=== PATIENT | female | born 1965 | race Caucasian/White ===

== ENCOUNTER 2017-09-23 22:43 | Emergency (ER) | payer BC ==
[2017-09-23 22:53] VITALS: BMI 19.5
--- NOTE | 2017-09-23 23:49 | PDOC ---
History of Present Illness - General History Source: Patient Exam Limitations: No Limitations - History of Present Illness Initial Comments: 09/24/17 00:51 Patient is a 52 year old female with a significant past medical history of hypothyroidism, who presents to the ED with complaints of acute onset abdominal pain that began 3 hours prior to ED arrival. Patient reports experience sudden onset of diffuse abdominal pain while at home that has shown no signs of subsiding prompting her to come into the ED for further evaluation. She reports her last bowel movement was earlier today stating it was not soft, and was quickly followed by intermittent episodes of cold sweats. Patient reports she has experienced episodes of gas issues but is unsure if this feels similar to those episodes. Denies chest pain, Sob. Denies nausea, vomiting. Denies contact with sick individuals, out of state travelling. Denies any other symptoms. Allergies: None Social History: No smoking. No alcohol. No illicit drugs, Surgical History: None PMD: Dr. Collins <Silvestre Grimaldo - Last Filed: 09/24/17 00:51> - General History Source: Patient <Tito Abrams - Last Filed: 09/24/17 06:19> - General Chief Complaint: Nausea/Vomiting Stated Complaint: NAUSEA/VOMITING Time Seen by Provider: 09/23/17 23:44 Past History <Silvestre Grimaldo - Last Filed: 09/24/17 00:51> - Past Medical History COPD: No Thyroid Disease: Yes (hypothyroidism) - Immunization History Td Vaccination: Yes TDAP Vaccination: Yes Immunization Up to Date: Yes - Suicide/Smoking/Psychosocial Hx Smoking Status: No Smoking History: Never smoked Number of Cigarettes Smoked Daily: 0 <Tito Abrams - Last Filed: 09/24/17 06:19> - Past Medical History Allergies/Adverse Reactions: Allergies Allergy/AdvReac Type Severity Reaction Status Date / Time Sulfa (Sulfonamide Allergy Verified 09/23/17 22:50 Antibiotics) Home Medications: Ambulatory Orders Levothyroxine [Synthroid] 50 mcg PO DAILY 05/25/12 Ondansetron [Zofran *Odt*] 4 mg SL TID #30 od.tablet 09/24/17 Review of Systems - Review of Systems Able to Perform ROS?: Yes Comments:: 09/24/17 00:51 CONSTITUTIONAL: Absent: fever, no chills, no fatigue EYES: Absent: visual changes ENT: Absent: ear pain, no sore throat CARDIOVASCULAR: Absent: chest pain, no palpitations RESPIRATORY: Absent: cough, no SOB GI: +Abdominal pain. Absent: No nausea, no vomiting, no constipation, no diarrhea GENITOURINARY: Absent: dysuria, no frequency, no hematuria MUSCULOSKELETAL: Absent: back pain, no arthralgia, no myalgia SKIN: Absent: rash <Silvestre Grimaldo - Last Filed: 09/24/17 00:51> *Physical Exam - Vital Signs Last Vital Signs Temp Pulse Resp BP Pulse Ox 57 L 18 124/85 100 09/23/17 22:50 09/23/17 22:50 09/23/17 22:50 09/23/17 22:50 - Physical Exam Comments: 09/24/17 00:52 GENERAL: +Mild distress. Well-appearing, well-nourished. No apparent distress. HEENT: Normocephalic, atraumatic. PERRL, EOM intact. CARDIOVASCULAR: Normal S1, S2. Regular rate and rhythm. PULMONARY: Clear to auscultation bilaterally. ABDOMEN: +Diffusely tender Soft, non-distended, EXTREMITIES: Normal ROM in all four extremities. No gross deformities. SKIN: Warm, dry. No rash NEUROLOGICAL: No focal neurological deficits. <Silvestre Grimaldo - Last Filed: 09/24/17 00:51> - Vital Signs Last Vital Signs Temp Pulse Resp BP Pulse Ox 57 L 18 124/85 100 09/23/17 22:50 09/23/17 22:50 09/23/17 22:50 09/23/17 22:50 <Tito Abrams - Last Filed: 09/24/17 06:19> ED Treatment Course - LABORATORY CBC & Chemistry Diagram: 09/24/17 03:50 09/24/17 03:50 <Tito Abrams - Last Filed: 09/24/17 06:19> Medical Decision Making - Medical Decision Making 09/24/17 06:19 Dr. Abrams: The scribe's documentation has been prepared under my direction and personally reviewed by me in its entirery. I confirm that the note above accurately reflects all work, treatment, procedures, and medical decision making performed by me. <Tito Abrams - Last Filed: 09/24/17 06:19> *DC/Admit/Observation/Transfer - Attestations Scribe Attestion: 09/24/17 00:52 Documentation prepared by Silvestre rGimaldo, acting as anesthesiology medical doctor for Tito Abrams MD/DO. <Silvestre Grimaldo - Last Filed: 09/24/17 00:51> - Discharge Dispostion Admit: No <Tito Abrams - Last Filed: 09/24/17 06:19> Diagnosis at time of Disposition: Dehydration Nausea & vomiting Qualifiers: Vomiting type: unspecified Vomiting Intractability: non-intractable Qualified Code(s): R11.2 - Nausea with vomiting, unspecified - Discharge Dispostion Disposition: HOME Condition at time of disposition: Improved - Referrals Referrals: Aminta Huertas MD [Primary Care Provider] - - Patient Instructions Printed Discharge Instructions: DI for Nausea -- Adult, DI for Vomiting -- Adult, DI for Dehydration -- Adult Additional Instructions: Drink plenty of fluids. take medications as directed. Return if any problems - Post Discharge Activity
[2017-09-23] MEDS ORDERED: KETOROLAC TROMETHAMINE 30 MG/1 ML VIAL IVPUSH ONE (23:51)
[2017-09-23] MEDS ORDERED: ONDANSETRON 4 MG/2 ML VIAL IVPUSH STA (23:51)
[2017-09-23] MEDS ORDERED: SODIUM CHLORIDE 1,000 ML IV STA (23:51)
[2017-09-24] MEDS ORDERED: ONDANSETRON 4 MG/2 ML VIAL ONE (03:25)
[2017-09-24] MEDS ORDERED: KETOROLAC TROMETHAMINE 30 MG/1 ML VIAL ONE (03:25)
[2017-09-24 04:05] LABS: URINE APPEARANCE CLEAR; URINE BILIRUBIN NEGATIVE (<2.0 mg/dL); URINE BLOOD 3+ (NEGATIVE); URINE COLOR LTYELLOW; URINE GLUCOSE (UA) NEGATIVE (NEGATIVE); URINE KETONE 1+ (NEGATIVE); URINE LEUK ESTERASE NEGATIVE (NEGATIVE); URINE NITRITE NEGATIVE (NEGATIVE); URINE PROTEIN NEGATIVE (NEGATIVE); URINE UROBILINOGEN NEGATIVE mg/dL (0.2-1.0)
[2017-09-24 04:13] LABS: EPI CELLS RARE /HPF (FEW); URINE MUCUS RARE
[2017-09-24 04:15] LABS: PROTHROMBIN TIME (PATIENT) 11.3 SEC (9.98-11.88)
[2017-09-24 04:18] LABS: BASO % 0.2 % (0-2.0); HEMATOCRIT 44.5 % (32.4-45.2); HEMOGLOBIN 14.8 GM/dL (10.7-15.3); LYMPH % 7.8 % (8-40); MCH 30.9 pg (25.7-33.7); MCHC 33.4 g/dl (32.0-36.0); MEAN CELL VOLUME 92.5 fl (80-96); MEAN PLT VOLUME 9.8 fl (7.5-11.1); MONO % 2.7 % (3.8-10.2); NEUT % 89.3 % (42.8-82.8); PLATELET COUNT 222 K/MM3 (134-434); RBC 4.81 M/mm3 (3.60-5.2); RDW 12.5 % (11.6-15.6); WHITE BLOOD COUNT 13.4 K/mm3 (4.0-10.0)
[2017-09-24 04:28] LABS: ALBUMIN 4.9 g/dl (3.4-5.0); ANION GAP 12 (8-16); BILIRUBIN,TOTAL 0.5 mg/dL (0.2-1.0); BLOOD UREA NITROGEN 22 mg/dL (7-18); CALCIUM 9.9 mg/dL (8.5-10.1); CHLORIDE 103 mmol/L (98-107); CO2 29 mmol/L (21-32); CREATININE 0.9 mg/dL (0.55-1.02); GLUCOSE,RANDOM 114 mg/dL (74-106); MAGNESIUM 2.2 mg/dL (1.8-2.4); SGOT/AST 20 U/L (15-37); SGPT/ALT 14 U/L (12-78); SODIUM 144 mmol/L (136-145); TOT PROT 8.9 g/dl (6.4-8.2)
[2017-09-24 04:31] LABS: ALK PHOS 99 U/L (45-117)
[2017-09-24 06:35] VITALS: BP 132/91; PULSE 83; TEMP 98
== END 2017-09-24 06:57 | disposition home or self-care (01) ==
LOC: JER 22:43
PROC: 3E033GC Introduction of Other Therapeutic Substance into Peripheral Vein, Percutaneous Approach (ICD-10-PCS; principal; 2017-09-23)
PROC: 3E0333Z Introduction of Anti-inflammatory into Peripheral Vein, Percutaneous Approach (ICD-10-PCS; 2017-09-23)
DX: E86.0 Dehydration (principal); E03.9 Hypothyroidism, unspecified
CPT/HCPCS: 36415; 80053; 81003; 81015; 82550; 83690; 83735; 84484; 85025; 85610; 86850; 86900; 86901; 99282-25; J7030

== ENCOUNTER 2020-03-30 18:44 | Inpatient (IN) | payer BC ==
[2020-03-30] MEDS ORDERED: SODIUM CHLORIDE 1,000 ML IV SCH ×2 (19:00→21:53)
--- OUTSIDE RECORDS SUMMARY | 2020-03-30 19:00 | XMS ---
:1965 Author Organization [facility] Re-disclosure Warning The records that you are about to access may contain information from federally- assisted alcohol or drug abuse programs. If such information is present, then the following federally mandated warning applies: This information has been disclosed to you from records protected by federal confidentiality rules (42 CFR part 2). The federal rules prohibit you from making any further disclosure of this information unless further disclosure is expressly permitted by the written consent of the person to whom it pertains or as otherwise permitted by 42 CFR part 2. A general authorization for the release of medical or other information is NOT sufficient for this purpose. The Federal rules restrict any use of the information to criminally investigate or prosecute any alcohol or drug abuse patient.The records that you are about to access may contain highly sensitive health information, the redisclosure of which is protected by Article 27-F of the [facility] Public Health law. If you continue you may haveaccess to information: Regarding HIV / AIDS; Provided by facilities licensed or operated by the [facility] Office of Mental Health; or Provided by the [facility] Office for People With Developmental Disabilities. If such information is present, then the following [facility] mandated warning applies: This information has been disclosed to you from confidential records which are protected by state law. State law prohibits you from making any further disclosure of this information without the specific written consent of the person to whom it pertains, or as otherwise permitted by law. Any unauthorized further disclosure in violation of state law may result in a fine or prison sentence or both. A general authorization for the release of medical or other information is NOT sufficient authorization for further disclosure. Insurance Providers Payer name Policy type Policy ID Covered Covered alliance party's Policy P susan / Coverage alliance party ID relationship to [facility] ormation type hastings [place] [id number] 1 [id number] [facility]
[2020-03-30] MEDS ORDERED: PANTOPRAZOLE SODIUM 40 MG VIAL IVPUSH ONE (19:11)
[2020-03-30 19:14] VITALS: BMI 20.7
--- NOTE | 2020-03-30 19:23 | PDOC ---
Attending Attestation - Resident Resident Name: Rios Montes - ED Attending Attestation I have performed the following: I have examined & evaluated the patient, The case was reviewed & discussed with the resident, I agree w/resident's findings & plan - HPI HPI: 03/30/20 19:53 Pt comes with vomiting blood and melena. She drinks vodka often and skips breakfast daily. SHe states that today all she had was a frappucinpo and a cookie and she ended up with gastritis and bleeding. She also often takes apap daily. (We will check a apap level.) Pt is thin and she eats small meals. Pt has no other medical hx. SHe quit smoking in 2008 SHe drinks rarely and occasionally and sometimes after work. Pt has no other complaints. - Physicial Exam PE: 03/30/20 19:57 Pt has no fever tachycardia heart regular rhythm lungs CTA B abd soft NT ND no flank pain no c/c/e neuro exam normal A+Ox3 skin appears yellowish, but her conjunctiva are not yellow or jaundiced. Pt and tell me her skin is normally this color - Medical Decision Making 03/30/20 19:32 Pt is getting a unit of O negative blood 03/30/20 20:05 Pt will get erythromycin to empty her bowels and she will be scoped by Dr. Maria in the AM Pt will be given a push of odansetron. Pt receive pantoprezole. 03/30/20 20:08 Hb is 8.9; her baseline from 2 yrs ago was 14. chem is pending 03/30/20 22:32 Pt is receiving another unit of type specific blood and she is going up to the GI suite. 03/30/20 23:48 Pt will go to ICU from the GI endoscopy suite. Discharge - Discharge Information Problems reviewed: Yes Clinical Impression/Diagnosis: GI bleed Qualifiers: GI bleed type/associated pathology: duodenal ulcer Qualified Code(s): K26.4 - Chronic or unspecified duodenal ulcer with hemorrhage Hematemesis Qualifiers: Nausea presence: unspecified Qualified Code(s): K92.0 - Hematemesis - Follow up/Referral - Patient Discharge Instructions - Post Discharge Activity
[2020-03-30] MEDS ORDERED: OCTREOTIDE ACETATE 50 MCG/1 ML - 1 ML VIAL IVPUSH ONE (19:32)
[2020-03-30] MEDS ORDERED: LACTATED RINGERS SOLUTION 1000 ML INFUS.BAG IV ONE (19:39)
[2020-03-30 19:45] LABS: BASO % 0.4 % (0-2.0); EOS % 1.1 % (0-4.5); HEMATOCRIT 27.2 % (32.4-45.2); HEMOGLOBIN 8.9 GM/dL (10.7-15.3); LYMPH % 16.7 % (8-40); MCH 31.5 pg (25.7-33.7); MCHC 32.6 g/dl (32.0-36.0); MEAN CELL VOLUME 96.6 fl (80-96); MEAN PLT VOLUME 8.5 fl (7.5-11.1); MONO % 7.1 % (3.8-10.2); NEUT % 74.7 % (42.8-82.8); PLATELET COUNT 217 K/MM3 (134-434); RBC 2.81 M/mm3 (3.60-5.2); RDW 12.6 % (11.6-15.6); WHITE BLOOD COUNT 14.7 K/mm3 (4.0-10.0)
[2020-03-30] MEDS ORDERED: ERYTHROMYCIN *INJECTION* 500 MG VIAL IVPB ONE (19:49)
--- NOTE | 2020-03-30 19:49 | PDOC ---
History of Present Illness - General Chief Complaint: Syncope/Near Syncope Stated Complaint: SYNCOPY Time Seen by Provider: 03/30/20 19:17 - History of Present Illness Initial Comments: 03/30/20 20:23 55yo F w/ PMHx hypothyroid and migraines (tx w/ ~4 Excedrin Migraine tabs /day) and daily EtOH use presents s/p 2episodes of hematemesis and 1 large episode of hematochezia. She threw up around 5pm, and her then got home and found her pale and diaphoretic in the bathroom. She was brought to this ED, and then she had the 1episode of hematochezia on the gurney. The BM and vomit are vytrcy-ha-iipmw colored w/ clots. No LOC, no confusion. Pt states she drinks "1 vodka bloody roland/day" and takes approximately 4 Exced rin tabs per day for her migraines. She reports being followed by a neurologist for these HAs. She denies prior similar episodes, bleeding disorders, or GI pathology. Past History - Medical History Allergies/Adverse Reactions: Allergies Allergy/AdvReac Type Severity Reaction Status Date / Time Sulfa (Sulfonamide Allergy Verified 03/30/20 18:52 Antibiotics) Home Medications: Ambulatory Orders Levothyroxine [Synthroid] 50 mcg PO DAILY 05/25/12 Ondansetron [Zofran *Odt*] 4 mg SL TID #30 od.tablet 09/24/17 COPD: No Thyroid Disease: Yes (hypothyroidism) - Reproductive History Is Patient Now?: No - Immunization History Td Vaccination: Yes TDAP Vaccination: Yes Immunization Up to Date: Yes - Psycho-Social/Smoking History Smoking Status: No Smoking History: Never smoked Have you smoked in the past 12 months: No Number of Cigarettes Smoked Daily: 0 - Substance Abuse Hx (Audit-C & DAST Scrn) How often the patient has a drink containing alcohol: 4 0r more times/wk Number of drinks the patient has on a typical day: 1 or 2 How often the patient has six or more drinks on one occasion: Weekly Score: In Men: 4 or > Positive; In Women: 3 or > Positive: 7 Screen Result (Pos requires Nsg. Audit-10AR): Positive In the last yr the pt used illegal drug/Rx for NonMed reason: Yes Score: Yes response is considered Positive: 1 Screen Result (Positive result requires Nsg. DAST-10): Positive Review of Systems - Review of Systems Able to Perform ROS?: Yes Is the patient limited Azeri proficient: No Constitutional: Yes: Chills. No: Diaphoresis, Fever HEENTM: No: Throat Pain, Throat Swelling Respiratory: No: Cough, Shortness of Breath, SOB with Exertion Cardiac (ROS): No: Chest Pain, Lightheadedness, Palpitations, Syncope ABD/GI: Yes: Nausea, Vomiting, Abdominal cramping : No: Symptoms Reported Musculoskeletal: No: Symptoms Reported Integumentary: No: Symptoms Reported, Lesions, Rash Neurological: Yes: Headache (migraine ). No: Numbness, Seizure, Dizziness Psychiatric: Yes: Anxiety Endocrine: No: Symptoms Reported Hematologic/Lymphatic: No: Symptoms Reported All Other Systems: Reviewed and Negative *Physical Exam - Vital Signs Last Vital Signs Temp Pulse Resp BP Pulse Ox 97.1 F L 70 18 100/69 98 03/30/20 18:50 03/30/20 18:50 03/30/20 18:50 03/30/20 18:50 03/30/20 18:50 - Physical Exam General Appearance: Yes: Nourished, Appropriately Dressed, Other (pale, shivering, but NAD. ) HEENT: positive: EOMI, Normal Voice Neck: positive: Trachea midline, Supple. negative: Tender, Stridor, Rigidity Respiratory/Chest: positive: Lungs Clear, Normal Breath Sounds. negative: Chest Tender Cardiovascular: positive: Regular Rhythm, Regular Rate Gastrointestinal/Abdominal: positive: Tender, Increased Bowel Sounds, Other (large grape-colored stool with visible clots) Rectal Exam: positive: melena, heme positive stool Musculoskeletal: positive: Normal Inspection. negative: CVA Tenderness Extremity: positive: Normal Capillary Refill, Normal Inspection, Normal Range of Motion Integumentary: positive: Pale, Clammy Neurologic: positive: Fully Oriented, Alert, Normal Response, Motor Strength 5/5 ED Treatment Course - LABORATORY CBC & Chemistry Diagram: 03/30/20 19:30 03/30/20 19:30 Medical Decision Making - Medical Decision Making 03/31/20 03:28 55yo F w/ hx daily excessive ASA and daily EtOH use presents after 2 episodes of hematemesis and 1 episode of melena. treating this as GI bleed. due to large magnitude of blood appreciated in vomit and stool -> will immediately give 1 unit PRBC and 2 L fluids IV and octreotide and protonix. Consulted GI -> Ann-Marie to perform emergent endoscopy and admit to ICU for monitoring. Discharge - Discharge Information Problems reviewed: Yes Clinical Impression/Diagnosis: GI bleed Qualifiers: GI bleed type/associated pathology: duodenal ulcer Qualified Code(s): K26.4 - Chronic or unspecified duodenal ulcer with hemorrhage Hematemesis Qualifiers: Nausea presence: unspecified Qualified Code(s): K92.0 - Hematemesis - Admission Yes - Follow up/Referral - Patient Discharge Instructions - Post Discharge Activity
[2020-03-30 19:52] LABS: INR 1.13 (0.83-1.09); PROTHROMBIN TIME (PATIENT) 13.3 SEC (9.7-13.0)
[2020-03-30 19:55] LABS: ACTIVATED PTT 24.9 SECONDS (25.2-36.5)
[2020-03-30 20:17] LABS: ALK PHOS 43 U/L (45-117); ANION GAP 6 MMOL/L (8-16); BILIRUBIN,TOTAL 0.2 mg/dL (0.2-1); BLOOD UREA NITROGEN 45.2 mg/dL (7-18); CALCIUM 7.8 mg/dL (8.5-10.1); CHLORIDE 113 mmol/L (98-107); CO2 25 mmol/L (21-32); CREATININE 0.8 mg/dL (0.55-1.3); GLUCOSE,RANDOM 201 mg/dL (74-106); POTASSIUM 4.9 mmol/L (3.5-5.1); SGOT/AST 12 U/L (15-37); SGPT/ALT 12 U/L (13-61); SODIUM 143 mmol/L (136-145); TOT PROT 5.4 g/dl (6.4-8.2)
--- NOTE | 2020-03-30 20:42 | CON.GI ---
Consult Consult Specialty:: Gastroenterology ( covering Dr. Redmond) Referred by:: Peter Montes MD Reason for Consultation:: GI bleed - History of Present Illness Chief Complaint: Hematemesis and melena History of Present Illness: 55F developed bright red hematemesis followed by melena today. I the ER she passed a marroon colored blood and has just vomited blood again. She has never had GI bleeding before. She had a normal colonoscopy with Dr Redmond about 2 years ago. She takes an aspirin qhs but for the past few months has been taking four regular strength aspirin daily for migraine headaches. She denies any abdominal pain and moves her bowels daily. She denies any h/o liver disease. 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 ...LMP: 03/30/20 ...: No Endocrine: Yes: Hypothyroidism - Past Surgical History Past Surgical History: Yes: Breast Biopsy (benign), Colonoscopy - Alcohol/Substance Use Hx Alcohol Use: Yes (one vodka cocktail nightly) History of Substance Use: reports: None - Smoking History Smoking history: Former smoker Have you smoked in the past 12 months: No Aproximately how many cigarettes per day: 0 If you are a former smoker, when did you quit?: 2008 - Social History Usual Living Arrangement: With Spouse ADL: Independent 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 Place of : [facility] History of Recent Travel: No Home Medications - Allergies Allergies/Adverse Reactions: Allergies Allergy/AdvReac Type Severity Reaction Status Date / Time Sulfa (Sulfonamide Allergy Verified 03/30/20 18:52 Antibiotics) - Home Medications Home Medications: Ambulatory Orders Levothyroxine [Synthroid] 50 mcg PO DAILY 05/25/12 Ondansetron [Zofran *Odt*] 4 mg SL TID #30 od.tablet 09/24/17 Family Medical History Family Hx Cardiac Disorders: Mother ( in her 60s of possible [place]) Other Family History: father is estranged Review of Systems - Review of Systems Constitutional: reports: No Symptoms Eyes: reports: No Symptoms HENT: reports: No Symptoms, Other (migraine headaches almost daily) Neck: reports: No Symptoms Cardiovascular: reports: No Symptoms Respiratory: reports: No Symptoms Gastrointestinal: reports: Melena, Vomiting Blood Genitourinary: reports: No Symptoms Physical Exam-GI Vital Signs: Vital Signs Temperature 97.1 F L 03/30/20 18:50 Pulse Rate 70 03/30/20 18:50 Respiratory Rate 18 03/30/20 18:50 Blood Pressure 100/69 03/30/20 18:50 O2 Sat by Pulse Oximetry (%) 98 03/30/20 18:50 CBC,CMP WBC 14.7 K/mm3 (4.0-10.0) H 03/30/20 19:30 RBC 2.81 M/mm3 (3.60-5.2) L 03/30/20 19:30 Hgb 8.9 GM/dL (10.7-15.3) L 03/30/20 19:30 Hct 27.2 % (32.4-45.2) L D 03/30/20 19:30 MCV 96.6 fl (80-96) H 03/30/20 19:30 MCH 31.5 pg (25.7-33.7) 03/30/20 19:30 MCHC 32.6 g/dl (32.0-36.0) 03/30/20 19:30 RDW 12.6 % (11.6-15.6) 03/30/20 19:30 Plt Count 217 K/MM3 (134-434) 03/30/20 19:30 MPV 8.5 fl (7.5-11.1) D 03/30/20 19:30 Absolute Neuts (auto) 11.0 K/mm3 (1.5-8.0) H 03/30/20 19:30 Neutrophils % 74.7 % (42.8-82.8) 03/30/20 19:30 Lymphocytes % 16.7 % (8-40) D 03/30/20 19:30 Monocytes % 7.1 % (3.8-10.2) D 03/30/20 19:30 Eosinophils % 1.1 % (0-4.5) D 03/30/20 19:30 Basophils % 0.4 % (0-2.0) 03/30/20 19:30 Nucleated RBC % 0 % (0-0) 03/30/20 19:30 Sodium 143 mmol/L (136-145) 03/30/20 19:30 Potassium 4.9 mmol/L (3.5-5.1) 03/30/20 19:30 Chloride 113 mmol/L (98-107) H 03/30/20 19:30 Carbon Dioxide 25 mmol/L (21-32) 03/30/20 19:30 Anion Gap 6 MMOL/L (8-16) L 03/30/20 19:30 BUN 45.2 mg/dL (7-18) H 03/30/20 19:30 Creatinine 0.8 mg/dL (0.55-1.3) 03/30/20 19:30 Est GFR (CKD-EPI)AfAm 96.87 03/30/20 19:30 Est GFR (CKD-EPI)NonAf 83.58 03/30/20 19:30 Random Glucose 201 mg/dL (74-106) H 03/30/20 19:30 Lactic Acid 2.1 mmol/L (0.4-2.0) H 03/30/20: Calcium 7.8 mg/dL (8.5-10.1) L 03/30/20: Total Bilirubin 0.2 mg/dL (0.2-1) 03/30/20 19:30 AST 12 U/L (15-37) L 03/30/20 19:30 ALT 12 U/L (13-61) L 03/30/20 19:30 Alkaline Phosphatase 43 U/L (45-117) L 03/30/20: Troponin I < 0.02 ng/ml (0.00-0.05) 03/30/20: Total Protein 5.4 g/dl (6.4-8.2) L 03/30/20 19:30 Albumin 3.0 g/dl (3.4-5.0) L 03/30/20 19:30 Constitutional: Yes: Anxious, Other (Pale) Eyes: Yes: Conjunctiva Clear HENT: Yes: Atraumatic Neck: Yes: Trachea Midline Cardiovascular: Yes: Tachycardia Respiratory: Yes: CTA Bilaterally ...Auscultate: Yes: Normoactive Bowel Sounds ...Palpate: Yes: Soft, Other (nontender) ...Rectal Exam: Yes: Guaiac Positive (chayo colored blood) Edema: No Peripheral Pulses WNL: Yes Neurological: Yes: Alert, Oriented Labs: CBC, BMP 03/30/20 19:30 03/30/20 19:30 INR, PTT INR 1.13 (0.83-1.09) H 03/30/20 19:30 Problem List - Problems (1) Gastrointestinal hemorrhage with melena Code(s): K92.1 - MELENA (2) Migraine Code(s): G43.909 - MIGRAINE, UNSP, NOT INTRACTABLE, WITHOUT STATUS MIGRAINOSUS (3) Hypothyroid Code(s): E03.9 - HYPOTHYROIDISM, UNSPECIFIED (4) GI bleed Code(s): K92.2 - GASTROINTESTINAL HEMORRHAGE, UNSPECIFIED Qualifiers: GI bleed type/associated pathology: melena Qualified Code(s): K92.1 - Melena (5) Hematemesis Code(s): K92.0 - HEMATEMESIS Qualifiers: Nausea presence: unspecified Qualified Code(s): K92.0 - Hematemesis Assessment/Plan Impression: - UGI bleed most likely due to an NSAID induced ulcer or erosive gastritis. I have advised a diagnostic and interventional EGD JEAN PAUL. I have discussed EGD in detail with Alexa and her and informed them of the potential for such complications as perforation and worsening of her hemorrhage culminating in the need for surgery and more transfusions Plan: -- Erythromycin infusion to promote gastric emptying -- PPI drip -- stat Rapid COVID 19 test -- Already receiving blood -- EGD JEAN PAUL then -- ICU monitoring Discussed with Dr. Sweet of anesthesia
[2020-03-30] MEDS: PANTOPRAZOLE SODIUM 80 MG in SODIUM CHLORIDE 100 ML IVPB SCH (20:45)
--- OUTSIDE RECORDS SUMMARY | 2020-03-30 20:59 | XMS ---
:1965 Author Organization [facility] Support Name Relationship Address Phone [employer] Unavailable [address] [place] [address] DANTE TREADWELL [address] [place] [address] Re-disclosure Warning The records that you are [...] is protected by Article 27-F of the [facility] Public Health law. If you continue you may haveaccess to information: Regarding HIV / AIDS; Provided by facilities licensed or operated by the [facility] Office of Mental Health; or Provided by the [facility] Office for People With Developmental Disabilities. If such information is present, then the following [facility] mandated warning applies: This information has been [...] law may result in a fine or longterm sentence or both. A general authorization for the release of medical or other information is NOT sufficient authorization for further disclosure. Insurance Providers Payer name Policy type Policy ID Covered Covered alliance party's Policy P susan / Coverage alliance party ID relationship to [facility] ormation type hastings [place] [id number] 1 [id number] [facility]
--- NOTE | 2020-03-30 21:25 | CONSULT ---
Consult Consult Specialty:: PULM/CCM Referred by:: Dr. Alfaro Reason for Consultation:: Hematemesis and hematochezia - History of Present Illness Chief Complaint: Vomiting blood and blody BM History of Present Illness: 55yo female with medical history of hypothyroid and migraines (tx w/ ~4 Excedrin Migraine tabs /day) and daily ETOH use brought in to ED by her with c/o 2 episodes of hematemesis and 1 large episode of hematochezia at home and 1 episode of hematochezia in ED. Pt states she drinks "1 vodka bloody roland/day" and takes approximately 4 Excedrin tabs per day for her migraines (followed by neuro as outpatient). Last few months patient reporting taking four regular strength ASA every night for migraines. She denies prior similar episodes, bleeding disorders, or GI pathology. Last colonoscopy done [address] Redmond which was benign. Patient will be going to endo for upper endoscopy by Dr. Crow restrepo. - History Source History Provided By: Patient Limitations to Obtaining History: No Limitations - Past Medical History MONUMENT CARVER: Yes: Migraine ...LMP: 03/30/20 ...: No Endocrine: Yes: Hypothyroidism - Past Surgical History Past Surgical History: Yes: Breast Biopsy (benign), Colonoscopy - Alcohol/Substance Use Hx Alcohol Use: Yes (one vodka cocktail nightly) Number of Drinks Daily: 1 History of Substance Use: reports: None - Smoking History Smoking history: Former smoker Have you smoked in the past 12 months: No Aproximately how many cigarettes per day: 0 If you are a former smoker, when did you quit?: 2008 - Social History Usual Living Arrangement: With Spouse ADL: Independent 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 History of Recent Travel: No Home Medications - Allergies Allergies/Adverse Reactions: Allergies Allergy/AdvReac Type Severity Reaction Status Date / Time Sulfa (Sulfonamide Allergy Verified 03/30/20 18:52 Antibiotics) - Home Medications Home Medications: Ambulatory Orders Levothyroxine [Synthroid] 50 mcg PO DAILY 05/25/12 Ondansetron [Zofran *Odt*] 4 mg SL TID #30 od.tablet 09/24/17 Family Medical History Family Hx Cardiac Disorders: Mother ( in her 60s of possible [place]) Other Family History: father is estranged Review of Systems - Review of Systems Constitutional: reports: No Symptoms Eyes: reports: No Symptoms HENT: reports: No Symptoms Neck: reports: No Symptoms Cardiovascular: reports: No Symptoms Respiratory: reports: No Symptoms Gastrointestinal: reports: Rectal Bleeding, Vomiting Blood Genitourinary: reports: No Symptoms Breasts: reports: No Symptoms Reported Musculoskeletal: reports: Muscle Weakness Integumentary: reports: No Symptoms Neurological: reports: Headache (Migranes) Endocrine: reports: Other (Patient reporting hypothyrodism) Hematology/Lymphatic: reports: No Symptoms Psychiatric: reports: No Symptoms Physical Exam Vital Signs: Vital Signs Temperature 97.1 F L 03/30/20 18:50 Pulse Rate 70 03/30/20 18:50 Respiratory Rate 18 03/30/20 18:50 Blood Pressure 100/69 03/30/20 18:50 O2 Sat by Pulse Oximetry (%) 98 03/30/20 18:50 Constitutional: Yes: Well Nourished, No Distress, Calm, Pallor Eyes: Yes: WNL, Conjunctiva Clear, EOM Intact HENT: Yes: WNL, Atraumatic, Normocephalic Neck: Yes: WNL, Supple, Trachea Midline Cardiovascular: Yes: WNL, Regular Rate and Rhythm, S1, S2 Respiratory: Yes: WNL, Regular, CTA Bilaterally Gastrointestinal: Yes: Hematemesis, Hyperactive Bowel Sounds, Melena, Rectal Bleeding Renal/: Yes: WNL Breast(s): Yes: WNL Musculoskeletal: Yes: Muscle Weakness Extremities: Yes: WNL Edema: No Peripheral Pulses WNL: Yes Integumentary: Yes: WNL Neurological: Yes: WNL, Alert, Oriented ...Motor Strength: WNL Psychiatric: Yes: WNL, Alert, Oriented Labs: CBC, BMP 03/30/20 19:30 03/30/20 19:30 Problem List - Problems (1) Gastrointestinal hemorrhage with melena Code(s): K92.1 - MELENA (2) Hematemesis Code(s): K92.0 - HEMATEMESIS Qualifiers: Nausea presence: unspecified Qualified Code(s): K92.0 - Hematemesis (3) Hypothyroid Code(s): E03.9 - HYPOTHYROIDISM, UNSPECIFIED (4) Migraine Code(s): G43.909 - MIGRAINE, UNSP, NOT INTRACTABLE, WITHOUT STATUS MIGRAINOSUS Assessment/Plan 55yo female with medical history of hypothyroid and migraines (tx w/ ~4 Excedrin Migraine tabs /day) and daily ETOH use brought in to ED by her with c/o 2 episodes of hematemesis and 1 large episode of hematochezia at home and 1 episode of hematochezia in ED. Last few months patient reporting taking four r egular strength ASA every night for migraines. Patient is admitted to ICU for further management of GI bleed likely secondary to excessive NSAID use. -NPO -PPI drip -IVF -CBC post transfusion -EGD with Dr. Maria -Appreciate GI recs -I/O -Monitor and replete lytes PRN, keep Mg>2, K>4 -Zofran PRN -ICU monitoring Dispo: full code Miranda Small ACN [id number]
--- NOTE | 2020-03-30 22:48 | PN ---
Progress Note (short form) - Note Progress Note: GI Procedure NOte: Please see EGD report. The bleeding was from a postbulbar ulcer. Multiple small gastric ulcers were also noted. Discussed findings with the patient and her , Art Problem List - Problems (1) Gastrointestinal hemorrhage with melena Code(s): K92.1 - MELENA (2) Migraine Code(s): G43.909 - MIGRAINE, UNSP, NOT INTRACTABLE, WITHOUT STATUS MIGRAINOSUS (3) Hypothyroid Code(s): E03.9 - HYPOTHYROIDISM, UNSPECIFIED (4) GI bleed Code(s): K92.2 - GASTROINTESTINAL HEMORRHAGE, UNSPECIFIED Qualifiers: Qualified Code(s): K92.1 - Melena (5) Hematemesis Code(s): K92.0 - HEMATEMESIS Qualifiers: Qualified Code(s): K92.0 - Hematemesis
[2020-03-30] MEDS: MAG HYDROX/AL HYDROX/SIMETH 30 ML UNIT-DOSE CUP PO SCH (23:00)
[2020-03-31] MEDS: LACTATED RINGERS SOLUTION 1,000 ML IV SCH ×2 (00:06→11:28)
[2020-03-31] MEDS: PANTOPRAZOLE SODIUM 80 MG in SODIUM CHLORIDE 100 ML IVPB SCH (00:08)
[2020-03-31 06:52] LABS: HEMATOCRIT 32.3 % (32.4-45.2); HEMOGLOBIN 11.1 GM/dL (10.7-15.3); MCH 31.5 pg (25.7-33.7); MCHC 34.3 g/dl (32.0-36.0); MEAN CELL VOLUME 91.7 fl (80-96); MEAN PLT VOLUME 8.9 fl (7.5-11.1); PLATELET COUNT 157 K/MM3 (134-434); RBC 3.52 M/mm3 (3.60-5.2); RDW 14.3 % (11.6-15.6); WHITE BLOOD COUNT 11.1 K/mm3 (4.0-10.0)
[2020-03-31 07:06] LABS: INR 1.06 (0.83-1.09); PROTHROMBIN TIME (PATIENT) 12.5 SEC (9.7-13.0)
[2020-03-31 07:23] LABS: ALBUMIN 3.1 g/dl (3.4-5.0); ALK PHOS 44 U/L (45-117); ANION GAP 7 MMOL/L (8-16); BILIRUBIN,TOTAL 0.9 mg/dL (0.2-1); BLOOD UREA NITROGEN 24.3 mg/dL (7-18); CALCIUM 7.6 mg/dL (8.5-10.1); CHLORIDE 113 mmol/L (98-107); CO2 26 mmol/L (21-32); CREATININE 0.5 mg/dL (0.55-1.3); GLUCOSE,RANDOM 78 mg/dL (74-106); POTASSIUM 3.9 mmol/L (3.5-5.1); SGOT/AST 20 U/L (15-37); SGPT/ALT 14 U/L (13-61); SODIUM 146 mmol/L (136-145); TOT PROT 5.4 g/dl (6.4-8.2)
--- NOTE | 2020-03-31 07:36 | PN ---
Progress Note (short form) - Note Progress Note: Pulm/CCM Progress note Pt seen and examined in the ICU 24Hr: EGD yesterday---bleeding from post bulb ulcer 2 PRBC in total hemodynamically stable, no evidence of further bleeding hgb 11 Vital Signs Temp 97.8 F 03/31/20 06:00 Pulse 81 03/31/20 06:00 Resp 14 03/31/20 06:00 BP 149/88 03/31/20 06:00 Pulse Ox 100 03/31/20 06:00 Intake & Output 03/30/20 03/30/20 03/31/20 11:59 23:59 11:59 Intake Total 100 810 Balance 100 810 Weight 63.503 kg 63.6 kg Intake: IV 100 810 Lactated Ringers Solution 750 1,000 ml @ 75 mls/hr IV ASDIR KATLIN Rx#:[id number] Protonix 60 Other: Voiding Method Bedpan Bedpan # Unmeasured Voids Void 4 Height 5 ft 9 in Body Mass Index (BMI) 20.7 Weight Measurement Method Built in Bedscale Built in Bedscale Weight Measurement Method Est/Stated by Patient CBC, BMP 03/31/20 05:20 03/31/20 05:20 Current Medications Generic Name Dose Route Start Last Admin Trade Name Freq PRN Reason Stop Dose Admin Acetaminophen 650 mg 03/30/20 22:51 Tylenol - PO Q4H PRN HEADACHE Al Hydroxide/Mg Hydroxide 30 ml 03/30/20 23:00 03/30/20 23:00 Mylanta Oral Suspension - PO Not Given Q6HPO KATLIN Fentanyl 50 mcg 03/30/20 20:17 Sublimaze Injection - IVPUSH Q5M PRN PAIN-PACU ORDER X 4 DOSES ONLY Pantoprazole Sodium 80 mg/ 100 mls @ 10 mls/hr 03/30/20 19:45 03/31/20 00:08 Sodium Chloride IVPB 04/02/20 19:44 10 mls/hr Q10H KATLIN Administration 8 MG/HR Lactated Ringer's 1,000 mls @ 75 mls/hr 03/30/20 20:30 03/31/20 00:06 Lactated Ringers Solution IV 75 mls/hr ASDIR KATLIN Administration Sodium Chloride 1,000 mls @ 0 mls/hr 03/30/20 21:53 03/30/20 19:00 Normal Saline - IV 1,000 mls/hr ASDIR KATLIN Administration Wide Open Ondansetron HCl 4 mg 03/30/20 20:17 Zofran Injection IVPUSH Q6H PRN NAUSEA AND/OR VOMITING Discontinued Medications Generic Name Dose Route Start Last Admin Trade Name Freq PRN Reason Stop Dose Admin Erythromycin Lactobionate 250 mg 03/30/20 19:49 03/30/20 21:00 Erythromycin Injection - IVPB 03/30/20 19:50 250 mg ONCE ONE Administration Sodium Chloride 1,000 mls @ 42 mls/hr 03/30/20 19:00 03/30/20 22:36 Normal Saline - IV Not Given ASDIR KATLIN Lactated Ringer's 1,000 ml 03/30/20 19:39 03/30/20 19:00 Lactated Ringers Solution IV 03/30/20 19:40 1,000 ml ONCE ONE Administration Octreotide Acetate 50 mcg 03/30/20 19:32 03/30/20 20:30 Sandostatin - IVPUSH 03/30/20 19:33 50 mcg ONCE ONE Administration Pantoprazole Sodium 80 mg 03/30/20 19:11 03/30/20 20:30 Protonix Iv IVPUSH 03/30/20 19:12 80 mg ONCE ONE Administration PE: Gen: awake, pleasant, INAD Pulm: clear CV:regular, no m/r/g ABD: soft, NT, +BS Ext: no edema Neuro: a & o, non-focal A/p: 55yo female with medical history of hypothyroid and migraines (tx w/ ~4 Excedrin Migraine tabs /day) and daily ETOH use brought in to ED by her with c/o 2 episodes of hematemesis and 1 large episode of hematochezia at home and 1 episode of hematochezia in ED. Last few months patient reporting taking four regular strength ASA every night for migraines. Patient is admitted to ICU for further management of GI bleed likely secondary to excessive NSAID use. -NPO--->clears -PPI drip---> bid likely today -IVF -CBC post transfusion -EGD with Dr. Maria -Appreciate GI recs -I/O -Monitor and replete lytes PRN, keep Mg>2, K>4 -Zofran PRN -ICU monitoring. ok for Med surg if no further bleeding today Wei ACNP [phone]
[2020-03-31] MEDS: MAG HYDROX/AL HYDROX/SIMETH 30 ML UNIT-DOSE CUP PO SCH ×2 (11:28→17:18)
--- NOTE | 2020-03-31 12:00 | PN.GI ---
GI Progress Note Subjective: GI NOte: No overt bleeding, in fact no BMs yesterday. No pain - Objective Vital Signs: Vital Signs Temperature 97.8 F 03/31/20 06:00 Pulse Rate 82 03/31/20 08:00 Respiratory Rate 18 03/31/20 08:00 Blood Pressure 152/83 03/31/20 08:00 O2 Sat by Pulse Oximetry (%) 100 03/31/20 08:00 Laboratory Tests 03/30/20 03/30/20 03/30/20 19:30 19:30 19:57 Hgb 8.9 L PT with INR BUN 45.2 H Hemoglobin A1c % Total Bilirubin C-Reactive Protein SARS-CoV-2 (PCR) Negative 03/31/20 03/31/20 03/31/20 05:20 05:20 05:20 Hgb 11.1 PT with INR 12.50 BUN 24.3 H Hemoglobin A1c % Total Bilirubin 0.9 C-Reactive Protein < 0.3 SARS-CoV-2 (PCR) 03/31/20 05:20 Hgb PT with INR BUN Hemoglobin A1c % 4.7 Total Bilirubin C-Reactive Protein SARS-CoV-2 (PCR) Constitutional: Calm ...Auscultate: Yes: Normoactive Bowel Sounds ...Palpate: Yes: Soft, Other (nontender) Labs: CBC, BMP 03/31/20 05:20 03/31/20 05:20 INR, PTT INR 1.06 (0.83-1.09) 03/31/20 05:20 Assessment/Plan Impression: - Postbulbar duodenal ulcer bleed most likely due to NSAIDs - Multiple gastric ulcers Plan: -- Clear liquids -- PPI BID -- Venofer Discussed with Charles Carvajal NP Problem List - Problems (1) Duodenal ulcer Code(s): K26.9 - DUODENAL ULCER, UNSP ACUTE OR CHRONIC, W/O HEMOR OR PERF (2) Gastric ulcer Code(s): K25.9 - GASTRIC ULCER, UNSP ACUTE OR CHRONIC, W/O HEMOR OR PERF (3) Gastrointestinal hemorrhage with melena Code(s): K92.1 - MELENA (4) Migraine Code(s): G43.909 - MIGRAINE, UNSP, NOT INTRACTABLE, WITHOUT STATUS MIGRAINOSUS (5) Hypothyroid Code(s): E03.9 - HYPOTHYROIDISM, UNSPECIFIED (6) GI bleed Code(s): K92.2 - GASTROINTESTINAL HEMORRHAGE, UNSPECIFIED Qualifiers: GI bleed type/associated pathology: duodenal ulcer Qualified Code(s): K26.4 - Chronic or unspecified duodenal ulcer with hemorrhage (7) Hematemesis Code(s): K92.0 - HEMATEMESIS Qualifiers: Nausea presence: unspecified Qualified Code(s): K92.0 - Hematemesis
[2020-03-31] MEDS: ACETAMINOPHEN 325 MG TABLET (FP) PO PRN ×2 (12:23→16:36)
[2020-03-31] MEDS: ONDANSETRON 4 MG/2 ML VIAL IVPUSH PRN (12:36)
[2020-03-31] MEDS ORDERED: ACETAMINOPHEN 325 MG TABLET (FP) ONE (16:35)
[2020-03-31] MEDS ORDERED: MAG HYDROX/AL HYDROX/SIMETH 30 ML UNIT-DOSE CUP ONE (17:18)
--- NOTE | 2020-03-31 18:41 | PN ---
Progress Note (short form) - Note Progress Note: Resident Transfer note Patient is a 55 year old female with past medical history of hypothyroidism and migraines, presented with hematemesis and hematochezia. Patient uses Excedrin tabs daily for migraines. Patient was subsequently admitted to the ICU where she received 2u prbc. Protonix gtt started. Patient was seen by GI and underwent urgent EGD which revealed bleeding found from postbulbar ulcer and multiple non- bleeding ulcers in the gastric body, gastric antrum and 1st part of the duodenum. Patient remained hemodynamically stable and had no more episodes of GI bleeding. GENERAL: The patient is awake, alert, and fully oriented, in no acute distress. NECK: supple. LUNGS: Breath sounds equal, clear to auscultation bilaterally HEART: Regular rate and rhythm, S1, S2 ABDOMEN: Soft, nontender, nondistended, normoactive bowel sounds EXTREMITIES: 2+ pulses, warm, well-perfused, no edema. SKIN: Warm, dry, normal turgor. #UGIB likely 2/2 NSAID use -no more episodes of GI bleeding -H/H remain stable -continue Protonix 40mg IV bid -clear liquid diet -GI recs appreciated. -Patient stable for transfer to med-surg unit
--- NOTE | 2020-03-31 20:02 | EKG ---
Test Reason : Blood Pressure : / mmHG Vent. Rate : 084 BPM Atrial Rate : 084 BPM P-R Int : 166 ms QRS Dur : 090 ms QT Int : 380 ms P-R-T Axes : 080 075 043 degrees QTc Int : 449 ms NORMAL SINUS RHYTHM WITH SINUS ARRHYTHMIA NORMAL ECG NO PREVIOUS ECGS AVAILABLE Confirmed by DANIELA ELLIS MD ([id number]) on 03/31/2020 8:01:47 PM Referred By: Confirmed By:DANIELA ELLIS MD
[2020-03-31] MEDS ORDERED: ACETAMINOPHEN 1000 MG/100 ML VIAL (NON FORMULARY) IVPB PRN (21:37)
[2020-03-31] MEDS: PANTOPRAZOLE SODIUM 40 MG VIAL IVPUSH SCH (21:57)
[2020-03-31] MEDS ORDERED: PANTOPRAZOLE SODIUM 40 MG VIAL ONE (22:04)
[2020-04-01] MEDS ORDERED: ACETAMINOPHEN 325 MG TABLET (FP) PO PRN ×2 (03:00→21:01)
[2020-04-01] MEDS ORDERED: oxyCODONE HCL 5 MG TABLET PO PRN (03:00)
[2020-04-01] MEDS ORDERED: oxyCODONE HCL 5 MG TABLET PO ONE (05:45)
[2020-04-01] MEDS ORDERED: ACETAMINOPHEN 325 MG TABLET (FP) PO ONE (05:45)
[2020-04-01] MEDS ORDERED: ONDANSETRON 4 MG/2 ML VIAL ONE (06:44)
[2020-04-01] MEDS ORDERED: LEVOTHYROXINE NA 88 MCG TABLET (FP) PO SCH (07:00)
[2020-04-01] MEDS: ONDANSETRON 4 MG/2 ML VIAL IVPUSH PRN (07:02)
[2020-04-01 07:38] LABS: HEMATOCRIT 32.9 % (32.4-45.2); HEMOGLOBIN 11.3 GM/dL (10.7-15.3); MCH 31.4 pg (25.7-33.7); MCHC 34.3 g/dl (32.0-36.0); MEAN CELL VOLUME 91.4 fl (80-96); MEAN PLT VOLUME 9.2 fl (7.5-11.1); PLATELET COUNT 194 K/MM3 (134-434); RDW 14.3 % (11.6-15.6); WHITE BLOOD COUNT 8.6 K/mm3 (4.0-10.0)
[2020-04-01] MEDS: PANTOPRAZOLE SODIUM 80 MG in SODIUM CHLORIDE 100 ML IVPB SCH (08:33)
[2020-04-01] MEDS: MAG HYDROX/AL HYDROX/SIMETH 30 ML UNIT-DOSE CUP PO SCH ×6 (08:34→19:07)
[2020-04-01] MEDS ORDERED: PT OWN MED DRAWER 7, Y5N ONE (10:00)
[2020-04-01] MEDS ORDERED: VENLAFAXINE HCL 150 MG E.R. CAPSULE PO SCH (10:00)
[2020-04-01] MEDS ORDERED: IRON SUCROSE INJECTION 200 MG in SODIUM CHLORIDE 90 ML IVPB ONE (10:30)
--- NOTE | 2020-04-01 11:57 | PN ---
Physical Exam: SUBJECTIVE: Patient seen and examined at the bedside. in no acute distress. denies abdominal pain. migrane headache improving. she denies any further bleeding but has not have a BM yet. OBJECTIVE: Patient is a 55 year old female with a past medical history of hypothyroidism, depression, daily etoh use, and migraines (was taking excedrin at home). Patient presents to the ED on 03/30/2020 with c/o of 2 episodes of hematemesis and 1 large episode of hematochezia at home and 1 episode of hematochezia in ED. Pt states she drinks "1 vodka bloody roland oer day" and takes approximately 4 Excedrin tabs per day for her migraines (followed by neuro as outpatient). Patient had an EGD done which showed the bleeding was from a postbulbar ulcer. Multiple small gastric ulcers were also noted. Vital Signs Period Temp Pulse Resp BP Sys/Garza Pulse Ox Last 24 Hr 98.2 F 69-100 14-28 133-167/79-99 99-100 GENERAL: The patient is awake, alert, and fully oriented, in no acute distress. HEAD: Normal with no signs of trauma. EYES: PERRL, extraocular movements intact, sclera anicteric, conjunctiva clear. No ptosis. ENT: Ears normal, nares patent, oropharynx clear without exudates, moist mucous membranes. NECK: Trachea midline, full range of motion, supple. LUNGS: Breath sounds equal, clear to auscultation bilaterally, no wheezes HEART: Regular rate and rhythm ABDOMEN: Soft, nontender, nondistended, normoactive bowel sounds EXTREMITIES: no edema. NEUROLOGICAL: Normal speech, gait not observed. PSYCH: Normal mood, normal affect. SKIN: Warm, dry, normal turgor, no rashes or lesions noted Laboratory Results - last 24 hr 04/01/20 05:35 WBC 8.6 RBC 3.60 Hgb 11.3 Hct 32.9 MCV 91.4 MCH 31.4 MCHC 34.3 RDW 14.3 Plt Count 194 D MPV 9.2 Active Medications Generic Name Dose Route Start Last Admin Trade Name Freq PRN Reason Stop Dose Admin Acetaminophen 650 mg 03/30/20 22:51 03/31/20 16:36 Tylenol - PO 650 mg Q4H PRN Administration HEADACHE Acetaminophen 1,000 mg 03/31/20 21:37 03/31/20 21:58 Ofirmev Injection - IVPB 04/01/20 21:37 1,000 mg Q6H PRN Administration HEADACHE Acetaminophen 325 mg 04/01/20 03:00 Tylenol - PO 04/04/20 02:59 Q4H PRN PAIN 4-6 Al Hydroxide/Mg Hydroxide 30 ml 03/30/20 23:00 04/01/20 08:35 Mylanta Oral Suspension - PO Not Given Q6HPO KATLIN Levothyroxine Sodium 88 mcg 04/01/20 07:00 04/01/20 05:59 Synthroid - PO 88 mcg DAILY@0700 KATLIN Administration Oxycodone HCl 5 mg 04/01/20 03:00 04/01/20 03:05 Roxicodone - PO 5 mg Q4H PRN Administration PAIN 4-6 Pantoprazole Sodium 40 mg 03/31/20 22:00 03/31/20 21:57 Protonix Iv IVPUSH 40 mg BID KATLIN Administration Propranolol HCl 20 mg 04/01/20 10:00 Inderal - PO BID KATLIN Venlafaxine HCl 150 mg 04/01/20 10:00 Effexor Xr - PO DAILY KATLIN ASSESSMENT/PLAN: Problem List - Problems (1) GI bleed Assessment/Plan: Patient had an EGD done which showed the bleeding was from a postbulbar ulcer. Multiple small gastric ulcers were also noted. s/p ICU for gi bleed. received PRBC infusions. hmg/hct now stable on protonix iv push avoid nsaids daily CBC GI following Code(s): K92.2 - GASTROINTESTINAL HEMORRHAGE, UNSPECIFIED Qualifiers: GI bleed type/associated pathology: duodenal ulcer Qualified Code(s): K26.4 - Chronic or unspecified duodenal ulcer with hemorrhage (2) Gastric ulcer Code(s): K25.9 - GASTRIC ULCER, UNSP ACUTE OR CHRONIC, W/O HEMOR OR PERF (3) Hypothyroid Assessment/Plan: on synthroid Code(s): E03.9 - HYPOTHYROIDISM, UNSPECIFIED (4) Migraine Assessment/Plan: start fiorecet Code(s): G43.909 - MIGRAINE, UNSP, NOT INTRACTABLE, WITHOUT STATUS MIGRAINOSUS (5) Nausea & vomiting Code(s): R11.2 - NAUSEA WITH VOMITING, UNSPECIFIED Qualifiers: Vomiting type: unspecified Vomiting Intractability: non-intractable Qualified Code(s): R11.2 - Nausea with vomiting, unspecified (6) DVT prophylaxis Assessment/Plan[facility] [place] Code(s): Z29.9 - ENCOUNTER FOR PROPHYLACTIC MEASURES, UNSPECIFIED Visit type - Emergency Visit Emergency Visit: Yes ED Registration Date: 03/30/20 Care time: The patient presented to the Emergency Department on the above date and was hospitalized for further evaluation of their emergent condition. - New Patient This patient is new to me today: Yes Date on this admission: 04/01/20 - Critical Care Critical Care patient: No - Discharge Referral Referred to [facility] Med P.C.: No
--- NOTE | 2020-04-01 13:24 | PN.GI ---
GI Progress Note Subjective: No overt bleeding, in fact no BMs x 2 days. Denies abdominal pain, bloating, N/V. hgb/ hct increased to 11.3/32.9 from 8.9/27.2 s/p transfusion. Denies hematemesis, melena - Objective Vital Signs: Vital Signs Temperature 98.2 F 04/01/20 04:00 Pulse Rate 69 04/01/20 04:00 Respiratory Rate 14 04/01/20 04:00 Blood Pressure 151/86 04/01/20 04:00 O2 Sat by Pulse Oximetry (%) 100 04/01/20 04:00 Constitutional: Well Nourished, No Distress, Calm Eyes: Yes: WNL, Conjunctiva Clear, EOM Intact HENT: Yes: WNL, Atraumatic, Normocephalic Neck: Yes: Supple, Trachea Midline Cardiovascular: Yes: WNL, Regular Rate and Rhythm Respiratory: Yes: WNL, Regular, CTA Bilaterally Gastrointestinal Inspection: Yes: WNL ...Auscultate: Yes: Normoactive Bowel Sounds ...Palpate: Yes: Soft. No: Firm/Rigid, Guarding, Hepatomegaly, Mass, Pulsatile Mass, Splenomegaly, Tenderness, Tenderness, Epigastium Labs: CBC, BMP 04/01/20 05:35 03/31/20 05:20 INR, PTT INR 1.06 (0.83-1.09) 03/31/20 05:20 Assessment/Plan plan discussed with DR Redmond Impression: - Postbulbar duodenal ulcer bleed most likely due to NSAIDs - Multiple gastric ulcers Plan: advance to regular diet maintain on PPI BID ok to switch to oral PPI x 3months Problem List - Problems (1) Duodenal ulcer Code(s): K26.9 - DUODENAL ULCER, UNSP ACUTE OR CHRONIC, W/O HEMOR OR PERF (2) Gastric ulcer Code(s): K25.9 - GASTRIC ULCER, UNSP ACUTE OR CHRONIC, W/O HEMOR OR PERF (3) Gastrointestinal hemorrhage with melena Code(s): K92.1 - MELENA
[2020-04-01] MEDS: PANTOPRAZOLE SODIUM 40 MG VIAL IVPUSH SCH ×3 (14:16→21:53)
[2020-04-01] MEDS: ACETAMINOPHEN/CAFFEINE/BUTALBITAL 1 TAB PO PRN ×2 (16:30→22:37)
[2020-04-02] MEDS: MAG HYDROX/AL HYDROX/SIMETH 30 ML UNIT-DOSE CUP PO SCH ×4 (00:25→17:15)
[2020-04-02] MEDS: LEVOTHYROXINE NA 88 MCG TABLET (FP) PO SCH (06:18)
[2020-04-02] MEDS: ACETAMINOPHEN/CAFFEINE/BUTALBITAL 1 TAB PO PRN ×4 (06:19→22:21)
[2020-04-02 08:42] LABS: HEMATOCRIT 22.5 % (32.4-45.2); HEMOGLOBIN 7.9 GM/dL (10.7-15.3); MCH 31.9 pg (25.7-33.7); MCHC 34.8 g/dl (32.0-36.0); MEAN CELL VOLUME 91.5 fl (80-96); MEAN PLT VOLUME 8.7 fl (7.5-11.1); PLATELET COUNT 173 K/MM3 (134-434); RBC 2.46 M/mm3 (3.60-5.2); RDW 13.8 % (11.6-15.6); WHITE BLOOD COUNT 10.1 K/mm3 (4.0-10.0)
[2020-04-02 08:52] LABS: ALBUMIN 2.8 g/dl (3.4-5.0); BILIRUBIN,TOTAL 0.2 mg/dL (0.2-1); BLOOD UREA NITROGEN 37.2 mg/dL (7-18); CALCIUM 7.7 mg/dL (8.5-10.1); CREATININE 0.6 mg/dL (0.55-1.3); MAGNESIUM 2.6 mg/dL (1.8-2.4); POTASSIUM 3.5 mmol/L (3.5-5.1)
--- NOTE | 2020-04-02 08:56 | PN ---
Progress Note, Physician Chief Complaint: Seen and examined in bed. States abdominal pain has resolved-not further bleeding-normal BM overnight. Hct noted to be low-1u PRBC ordered. GI following History of Present Illness: 55 year old female with a past medical history of hypothyroidism, depression, daily etoh use, and migraines (was taking excedrin at home). Patient presents to the ED on 03/30/2020 with c/o of 2 episodes of hematemesis and 1 large episode of hematochezia at home and 1 episode of hematochezia in ED. Pt states she drinks "1 vodka bloody roland oer day" and takes approximately 4 Excedrin tabs per day for her migraines (followed by neuro as outpatient). Patient had an EGD done which showed the bleeding was from a postbulbar ulcer. Multiple small gastric ulcers were also noted. - Current Medication List Current Medications: Active Medications Acetaminophen (Tylenol -) 325 mg PO Q4H PRN PRN Reason: PAIN 4-6 Stop: 04/04/20 02:59 Acetaminophen (Tylenol -) 650 mg PO Q4H PRN PRN Reason: HEADACHE Acetaminophen/Butalbital/Caffeine (Fioricet -) 1 tablet PO Q6H PRN PRN Reason: HEADACHE Last Admin: 04/02/20 06:19 Dose: 1 tablet Documented by: Al Hydroxide/Mg Hydroxide (Mylanta Oral Suspension -) 30 ml PO Q6HPO [facility] Last Admin: 04/02/20 06:18 Dose: 30 ml Documented by: Levothyroxine Sodium (Synthroid -) 88 mcg PO DAILY@0700 [facility] Last Admin: 04/02/20 06:18 Dose: 88 mcg Documented by: Oxycodone HCl (Roxicodone -) 5 mg PO Q4H PRN PRN Reason: PAIN 4-6 Last Admin: 04/01/20 03:05 Dose: 5 mg Documented by: Pantoprazole Sodium (Protonix Iv) 40 mg IVPUSH BID [facility] Last Admin: 04/01/20 21:53 Dose: 40 mg Documented by: Propranolol HCl (Inderal -) 20 mg PO BID [facility] Last Admin: 04/01/20 23:38 Dose: Not Given Documented by: Venlafaxine HCl (Effexor Xr -) 150 mg PO DAILY [facility] - Objective Vital Signs: Vital Signs Temperature 98.9 F 04/02/20 06:00 Pulse Rate 98 H 04/02/20 06:00 Respiratory Rate 20 04/02/20 06:00 Blood Pressure 100/65 04/02/20 06:00 O2 Sat by Pulse Oximetry (%) 95 04/02/20 06:00 Constitutional: Yes: Well Nourished, No Distress, Calm Eyes: Yes: WNL, Conjunctiva Clear HENT: Yes: WNL, Atraumatic, Normocephalic Neck: Yes: WNL, Supple, Trachea Midline Cardiovascular: Yes: WNL, Regular Rate and Rhythm Respiratory: Yes: WNL, Regular, CTA Bilaterally Gastrointestinal: Yes: WNL, Normal Bowel Sounds, Hematemesis (resolved), Rectal Bleeding (resolved) ...Rectal Exam: Yes: Deferred Genitourinary: Yes: WNL Breast(s): Yes: WNL Musculoskeletal: Yes: WNL Extremities: Yes: WNL Edema: No Peripheral Pulses WNL: Yes Peripheral Pulses: Left Radial: 2+, Right Radial: 2+, Left Doralis Pedis: 2+, Right Dorsalis Pedis: 2+, Left Femoral: 2+, Right Femoral: 2+ Integumentary: Yes: WNL Neurological: Yes: WNL, Alert, Oriented ...Motor Strength: WNL Psychiatric: Yes: WNL Labs: CBC, BMP 04/02/20 07:50 INR, PTT INR 1.06 (0.83-1.09) 03/31/20 05:20 Problem List - Problems (1) Depression Assessment/Plan: emotional support Code(s): F32.9 - MAJOR DEPRESSIVE DISORDER, SINGLE EPISODE, UNSPECIFIED (2) Hematochezia Assessment/Plan: resolved Code(s): K92.1 - MELENA (3) COVID-19 ruled out Assessment/Plan: negative pcr Code(s): Z03.818 - ENCNTR FOR OBS FOR SUSP EXPSR TO OTH BIOLG AGENTS RULED OUT (4) Gastric ulcer Assessment/Plan: Postbulbar duodenal ulcer bleed most likely due to NSAIDs Multiple gastric ulcers GI following c/w PPI b monitor CBC 1u prbc pedning tolerating reg diet Code(s): K25.9 - GASTRIC ULCER, UNSP ACUTE OR CHRONIC, W/O HEMOR OR PERF (5) Hematemesis Assessment/Plan: resolved Code(s): K92.0 - HEMATEMESIS Qualifiers: Nausea presence: unspecified Qualified Code(s): K92.0 - Hematemesis (6) Hypothyroid Assessment/Plan: c/w synthroid Code(s): E03.9 - HYPOTHYROIDISM, UNSPECIFIED (7) Migraine Assessment/Plan: c/w fiorecet Code(s): G43.909 - MIGRAINE, UNSP, NOT INTRACTABLE, WITHOUT STATUS MIGRAINOSUS (8) Acute blood loss anemia Assessment/Plan: GI bleeding resolved. venofer x 2 given Hct 21 1u prbc ordered c/t monitor cbc Code(s): D62 - ACUTE POSTHEMORRHAGIC ANEMIA Visit type - Emergency Visit Emergency Visit: Yes ED Registration Date: 03/30/20 Care time: The patient presented to the Emergency Department on the above date and was hospitalized for further evaluation of their emergent condition. - New Patient This patient is new to me today: Yes Date on this admission: 04/02/20 - Critical Care Critical Care patient: No - Discharge Referral Referred to [facility] Med P.C.: No
[2020-04-02] MEDS ORDERED: VENLAFAXINE HCL 150 MG E.R. CAPSULE PO SCH (10:00)
[2020-04-02] MEDS ORDERED: POTASSIUM CHLORIDE TABS 20 MEQ TABLET.ER (FP) PO ONE (10:00)
[2020-04-02] MEDS ORDERED: PT OWN MED DRAWER 7, Y5N ONE ×2 (10:20→21:01)
[2020-04-02] MEDS: PANTOPRAZOLE SODIUM 40 MG VIAL IVPUSH SCH ×2 (10:27→22:19)
[2020-04-02] MEDS ORDERED: IRON SUCROSE INJECTION 200 MG in SODIUM CHLORIDE 90 ML IVPB ONE (11:00)
[2020-04-02] MEDS ORDERED: LACTATED RINGERS SOLUTION 1,000 ML/1,000 ML INFUS.BAG IV SCH (12:00)
[2020-04-02 12:55] LABS: ANISOCYTOSIS 1+; MACROCYTOSIS 1+; PLATELET ESTIMATE NORMAL
--- NOTE | 2020-04-02 13:51 | PN.GI ---
GI Progress Note Subjective: pt reports one episode of black stools last night. Denies abdominal pain, bloating, N/V. hgb/ hct trending down to 7.9/22.5 from 11.3/32.9. Denies hematemesis. - Objective Vital Signs: Vital Signs Temperature 98.9 F 04/02/20 06:00 Pulse Rate 112 H 04/02/20 10:27 Respiratory Rate 18 04/02/20 10:27 Blood Pressure 97/68 04/02/20 10:27 O2 Sat by Pulse Oximetry (%) 96 04/02/20 10:27 Constitutional: Well Nourished, No Distress, Calm Eyes: Yes: WNL, Conjunctiva Clear, EOM Intact HENT: Yes: WNL, Atraumatic, Normocephalic Neck: Yes: WNL, Supple, Trachea Midline Cardiovascular: Yes: WNL, Regular Rate and Rhythm Respiratory: Yes: WNL, Regular, CTA Bilaterally Gastrointestinal Inspection: Yes: WNL. No: Distention ...Auscultate: Yes: Normoactive Bowel Sounds ...Palpate: Yes: Soft. No: Firm/Rigid, Guarding, Hepatomegaly, Mass, Pulsatile Mass, Splenomegaly, Tenderness, Tenderness, Epigastium Labs: CBC, BMP 04/02/20 09:30 04/02/20 07:50 INR, PTT INR 1.06 (0.83-1.09) 03/31/20 05:20 Assessment/Plan plan discussed with DR Redmond Impression: - Postbulbar duodenal ulcer bleed most likely due to NSAIDs - Multiple gastric ulcers Plan: maintain on PPI BID switch to oral PPI x 3months upon d/c repeat CBC tonight monitor for bleeding Problem List - Problems (1) Duodenal ulcer Code(s): K26.9 - DUODENAL ULCER, UNSP ACUTE OR CHRONIC, W/O HEMOR OR PERF (2) Gastric ulcer Code(s): K25.9 - GASTRIC ULCER, UNSP ACUTE OR CHRONIC, W/O HEMOR OR PERF (3) Gastrointestinal hemorrhage with melena Code(s): K92.1 - MELENA
[2020-04-02 21:02] LABS: BASO % 0.3 % (0-2.0); EOS % 2.1 % (0-4.5); HEMATOCRIT 24.7 % (32.4-45.2); HEMOGLOBIN 8.5 GM/dL (10.7-15.3); MCH 31.8 pg (25.7-33.7); MCHC 34.6 g/dl (32.0-36.0); MEAN CELL VOLUME 91.9 fl (80-96); MEAN PLT VOLUME 9.3 fl (7.5-11.1); MONO % 10.2 % (3.8-10.2); NEUT % 59.4 % (42.8-82.8); PLATELET COUNT 157 K/MM3 (134-434); RBC 2.69 M/mm3 (3.60-5.2); RDW 14.2 % (11.6-15.6); WHITE BLOOD COUNT 10.3 K/mm3 (4.0-10.0)
[2020-04-03] MEDS: MAG HYDROX/AL HYDROX/SIMETH 30 ML UNIT-DOSE CUP PO SCH ×3 (00:08→12:11)
[2020-04-03] MEDS ORDERED: VENLAFAXINE HCL 75 MG E.R. CAPSULES PO SCH (00:10)
[2020-04-03] MEDS: LEVOTHYROXINE NA 88 MCG TABLET (FP) PO SCH (06:08)
[2020-04-03] MEDS: ACETAMINOPHEN/CAFFEINE/BUTALBITAL 1 TAB PO PRN (06:08)
[2020-04-03] MEDS ORDERED: PT OWN MED DRAWER 7, Y5N ONE (07:05)
[2020-04-03 09:18] LABS: HEMATOCRIT 24.3 % (32.4-45.2); HEMOGLOBIN 8.4 GM/dL (10.7-15.3); MCH 31.4 pg (25.7-33.7); MCHC 34.5 g/dl (32.0-36.0); MEAN CELL VOLUME 90.8 fl (80-96); MEAN PLT VOLUME 8.7 fl (7.5-11.1); PLATELET COUNT 169 K/MM3 (134-434); RBC 2.67 M/mm3 (3.60-5.2); RDW 14.7 % (11.6-15.6); WHITE BLOOD COUNT 8.8 K/mm3 (4.0-10.0)
[2020-04-03] MEDS: PANTOPRAZOLE SODIUM 40 MG VIAL IVPUSH SCH (09:20)
[2020-04-03] MEDS ORDERED: POLYETHYLENE GLYCOL 3350 119 GM BTL PO ONE (09:25)
[2020-04-03 09:51] LABS: BILIRUBIN,TOTAL 0.2 mg/dL (0.2-1); BLOOD UREA NITROGEN 17.8 mg/dL (7-18); CALCIUM 8.1 mg/dL (8.5-10.1); CREATININE 0.6 mg/dL (0.55-1.3); MAGNESIUM 2.1 mg/dL (1.8-2.4); POTASSIUM 3.6 mmol/L (3.5-5.1); TOT PROT 5.3 g/dl (6.4-8.2)
--- NOTE | 2020-04-03 09:54 | DS ---
Physical Exam: SUBJECTIVE: Patient seen and examined OBJECTIVE: Vital Signs Period Temp Pulse Resp BP Sys/Garza Pulse Ox Last 24 Hr 98.4 F-98.8 F 86-112 18-20 97-111/62-69 95-97 PHYSICAL EXAM Constitutional: Yes: Well Nourished, No Distress, Calm Eyes: Yes: WNL, Conjunctiva Clear HENT: Yes: WNL, Atraumatic, Normocephalic Neck: Yes: WNL, Supple, Trachea Midline Cardiovascular: Yes: WNL, Regular Rate and Rhythm Respiratory: Yes: WNL, Regular, CTA Bilaterally Gastrointestinal: Yes: WNL, Normal Bowel Sounds, Hematemesis (resolved), Rectal Bleeding (resolved) ...Rectal Exam: Yes: Deferred Genitourinary: Yes: WNL Breast(s): Yes: WNL Musculoskeletal: Yes: WNL Extremities: Yes: WNL Edema: No Peripheral Pulses WNL: Yes Peripheral Pulses: Left Radial: 2+, Right Radial: 2+, Left Doralis Pedis: 2+, Right Dorsalis Pedis: 2+, Left Femoral: 2+, Right Femoral: 2+ Integumentary: Yes: WNL Neurological: Yes: WNL, Alert, Oriented ...Motor Strength: WNL Psychiatric: Yes: WNL LABS Laboratory Results - last 24 hr 03/30/20 03/30/20 04/02/20 19:30 19:30 07:50 WBC Corrected WBC (auto) RBC Hgb Hct MCV MCH MCHC RDW Plt Count MPV Absolute Neuts (auto) Neutrophils % Neutrophils % (Manual) 73.3 Band Neutrophils % 0.0 Lymphocytes % Lymphocytes % (Manual) 21.8 Monocytes % Monocytes % (Manual) 5 Eosinophils % Eosinophils % (Manual) 0.0 Basophils % Basophils % (Manual) 0.0 Myelocytes % (Man) 0 Promyelocytes % (Man) 0 Blast Cells % (Manual) 0 Nucleated RBC % 0 Metamyelocytes 0 Hypochromia 0 Platelet Estimate Normal Platelet Comment Polychromasia 0 Poikilocytosis 0 Anisocytosis 1+ Microcytosis 1+ Macrocytosis 1+ Sodium Potassium Chloride Carbon Dioxide Anion Gap BUN Creatinine Est GFR (CKD-EPI)AfAm Est GFR (CKD-EPI)NonAf Random Glucose Calcium Magnesium Total Bilirubin AST ALT Alkaline Phosphatase Total Protein Albumin Blood Type A POSITIVE Antibody Screen Negative Crossmatch See Detail See Detail 10/06/20 10/06/20 10/07/20 09:30 19:43 06:00 WBC Cancelled 10.3 H Corrected WBC (auto) Cancelled RBC Cancelled 2.69 L Hgb Cancelled 8.5 L Hct Cancelled 24.7 L MCV Cancelled 91.9 MCH Cancelled 31.8 MCHC Cancelled 34.6 RDW Cancelled 14.2 Plt Count Cancelled 157 MPV Cancelled 9.3 Absolute Neuts (auto) Cancelled 6.1 Neutrophils % Cancelled 59.4 D Neutrophils % (Manual) Band Neutrophils % Lymphocytes % Cancelled 28.0 D Lymphocytes % (Manual) Monocytes % Cancelled 10.2 Monocytes % (Manual) Eosinophils % Cancelled 2.1 D Eosinophils % (Manual) Basophils % Cancelled 0.3 Basophils % (Manual) Myelocytes % (Man) Promyelocytes % (Man) Blast Cells % (Manual) Nucleated RBC % Cancelled 0 Metamyelocytes Hypochromia Platelet Estimate Cancelled Platelet Comment Cancelled Polychromasia Poikilocytosis Anisocytosis Microcytosis Macrocytosis Sodium 142 Potassium 3.6 Chloride 109 H Carbon Dioxide 30 Anion Gap 3 L BUN 17.8 Creatinine 0.6 Est GFR (CKD-EPI)AfAm 119.77 Est GFR (CKD-EPI)NonAf 103.34 Random Glucose 118 H Calcium 8.1 L Magnesium 2.1 Total Bilirubin 0.2 AST 10 L ALT 8 L Alkaline Phosphatase 41 L Total Protein 5.3 L Albumin 3.0 L Blood Type Antibody Screen Crossmatch 04/03/20 08:43 WBC 8.8 Corrected WBC (auto) RBC 2.67 L Hgb 8.4 L Hct 24.3 L MCV 90.8 MCH 31.4 MCHC 34.5 RDW 14.7 Plt Count 169 MPV 8.7 Absolute Neuts (auto) Neutrophils % Neutrophils % (Manual) Band Neutrophils % Lymphocytes % Lymphocytes % (Manual) Monocytes % Monocytes % (Manual) Eosinophils % Eosinophils % (Manual) Basophils % Basophils % (Manual) Myelocytes % (Man) Promyelocytes % (Man) Blast Cells % (Manual) Nucleated RBC % Metamyelocytes Hypochromia Platelet Estimate Platelet Comment Polychromasia Poikilocytosis Anisocytosis Microcytosis Macrocytosis Sodium Potassium Chloride Carbon Dioxide Anion Gap BUN Creatinine Est GFR (CKD-EPI)AfAm Est GFR (CKD-EPI)NonAf Random Glucose Calcium Magnesium Total Bilirubin AST ALT Alkaline Phosphatase Total Protein Albumin Blood Type Antibody Screen Crossmatch HOSPITAL COURSE: Date of Admission:03/30/20 Date of Discharge: 04/03/20 - Problems (1) Depression Assessment/Plan: emotional support Code(s): F32.9 - MAJOR DEPRESSIVE DISORDER, SINGLE EPISODE, UNSPECIFIED (2) Hematochezia Assessment/Plan: resolved Code(s): K92.1 - MELENA (3) COVID-19 ruled out Assessment/Plan: negative pcr Code(s): Z03.818 - ENCNTR FOR OBS FOR SUSP EXPSR TO OTH BIOLG AGENTS RULED OUT (4) Gastric ulcer Assessment/Plan: Postbulbar duodenal ulcer bleed most likely due to NSAIDs Multiple gastric ulcers f/u with Dr Redmond in 3 months c/w PPI bid x 3 months monitor CBC 1u prbc overnight tolerating reg diet Code(s): K25.9 - GASTRIC ULCER, UNSP ACUTE OR CHRONIC, W/O HEMOR OR PERF (5) Hematemesis Assessment/Plan: resolved Code(s): K92.0 - HEMATEMESIS Qualifiers: Nausea presence: unspecified Qualified Code(s): K92.0 - Hematemesis (6) Hypothyroid Assessment/Plan: c/w synthroid Code(s): E03.9 - HYPOTHYROIDISM, UNSPECIFIED (7) Migraine Assessment/Plan: c/w fiorecet Code(s): G43.909 - MIGRAINE, UNSP, NOT INTRACTABLE, WITHOUT STATUS MIGRAINOSUS (8) Acute blood loss anemia Assessment/Plan: resolved Medcially stable for dc to home with f/u with GI in 3 months Minutes to complete discharge: 35 Discharge Summary Problems reviewed: Yes Reason For Visit: GASTOINTESTINAL HEMORRHAGE Current Active Problems Acute blood loss anemia (Acute) COVID-19 ruled out (Acute) DVT prophylaxis (Acute) Depression (Acute) Duodenal ulcer (Acute) ETOH abuse (Acute) GI bleed (Acute) Gastric ulcer (Acute) Gastrointestinal hemorrhage with melena (Acute) Hematemesis (Acute) Hematochezia (Acute) Hypothyroid (Acute) Migraine (Acute) Condition: Improved - Instructions Diet, Activity, Other Instructions: DISCHARGE YOUR VISIT You came to the hospital because you developed a GI bleed. You had an endospcy that reveled ulcers in the stomach. You given a 3 blood tranfusions and youe blood count improved and no further bleeding occurred. Follow with Dr Redmond in 2 weeks. Continue to take protonix 2 times a day x 3 moths. MEDICATIONS Please continue to take your home medications as prescribed. There was some changes: discountine all aspirin based medications Protonix 40mg twice a day x 3 months Fiorecet as need for migraines DIET Continue your home diet ADDITIONAL CARE Please make an appointment to see your primary care provider,2 week from today. Make an appointment with Dr Redmond in 2 weeks ADDITIONAL INFORMATION Please call 911 or come directly to the emergency department if you experience unusual headache, vision change, shortness of breath, chest pain, numbness, tingling, loss of alertness/awareness, loss of function, unusual bleeding or any alarming symptoms. Thank you for allowing me to care for you. Beto Hall, [facility], [facility] [phone] Referrals: Sunny Redmond MD [Staff Physician] - Disposition: HOME - Home Medications Comprehensive Discharge Medication List: Ambulatory Orders Levothyroxine [Synthroid -] 88 mcg PO DAILY 05/25/12 Venlafaxine HCl [Effexor] 150 mg PO DAILY 03/31/20 propRANOLol HCL [Inderal -] 20 mg PO BID 03/31/20 Butalb/Acetaminophen/Caffeine [Fioricet 50-300-40 mg Capsule] 1 each PO Q6H #30 capsule 04/03/20 Levothyroxine [Synthroid -] 88 mcg PO DAILY@0700 tablet 04/03/20 Mag Hydrox/Al Hydrox/Simeth [Mylanta Oral Suspension -] 30 ml PO Q6HPO cup 04/03/20 Pantoprazole Sodium [Protonix] 40 mg PO BID #60 tablet. 04/03/20 Venlafaxine HCl ER [Effexor Xr -] 150 mg PO DAILY cap.er.24h 04/03/20 propRANOLol HCL [Inderal -] 20 mg PO BID tablet 04/03/20 Prescription Drug Monitoring Program (I-STOP) results: I-STOP not reviewed Problem List - Problems (1) Depression Code(s): F32.9 - MAJOR DEPRESSIVE DISORDER, SINGLE EPISODE, UNSPECIFIED (2) Hematochezia Code(s): K92.1 - MELENA (3) COVID-19 ruled out Code(s): Z03.818 - ENCNTR FOR OBS FOR SUSP EXPSR TO OT BIOLG AGENTS RULED OUT (4) Gastric ulcer Code(s): K25.9 - GASTRIC ULCER, UNSP ACUTE OR CHRONIC, W/O HEMOR OR PERF (5) Hematemesis Code(s): K92.0 - HEMATEMESIS Qualifiers: Nausea presence: unspecified Qualified Code(s): K92.0 - Hematemesis (6) Hypothyroid Code(s): E03.9 - HYPOTHYROIDISM, UNSPECIFIED (7) Migraine Code(s): G43.909 - MIGRAINE, UNSP, NOT INTRACTABLE, WITHOUT STATUS MIGRAINOSUS (8) Acute blood loss anemia Code(s): D62 - ACUTE POSTHEMORRHAGIC ANEMIA This patient is new to me today: Yes Date on this admission: 04/03/20 Emergency Visit: Yes ED Registration Date: 03/30/20 Care time: The patient presented to the Emergency Department on the above date and was hospitalized for further evaluation of their emergent condition. Critical Care patient: No - Discharge Referral Referred to [facility] Med P.C.: No
[2020-04-03] MEDS ORDERED: PANTOPRAZOLE 40 MG TABLET PO SCH (10:00)
[2020-04-03 12:08] VITALS: BP 118/73; PULSE 114; TEMP 98
--- NOTE | 2020-04-03 14:12 | PN.GI ---
GI Progress Note Subjective: pt Seen and examined by Dr Gerardo at bedside this morning. States abdominal pain has resolved-no further bleeding. Hgb/Hct 8.4/24.3. pt stable. - Objective Vital Signs: Vital Signs Temperature 98 F 04/03/20 10:05 Pulse Rate 114 H 04/03/20 10:05 Respiratory Rate 20 04/03/20 10:05 Blood Pressure 118/73 04/03/20 10:05 O2 Sat by Pulse Oximetry (%) 98 04/03/20 10:05 Constitutional: Well Nourished, No Distress, Calm Eyes: Yes: Conjunctiva Clear, EOM Intact HENT: Yes: WNL, Atraumatic, Normocephalic Neck: Yes: WNL, Supple, Trachea Midline Cardiovascular: Yes: WNL, Regular Rate and Rhythm Respiratory: Yes: WNL, Regular, CTA Bilaterally Gastrointestinal Inspection: Yes: WNL ...Auscultate: Yes: Normoactive Bowel Sounds ...Palpate: Yes: Soft. No: Firm/Rigid, Guarding, Hepatomegaly, Mass, Pulsatile Mass, Splenomegaly, Tenderness, Tenderness, Epigastium, Tenderness, Rebound Labs: CBC, BMP 04/03/20 08:43 04/03/20 06:00 INR, PTT INR 1.06 (0.83-1.09) 03/31/20 05:20 Assessment/Plan plan discussed with DR Redmond Impression: - Postbulbar duodenal ulcer bleed most likely due to NSAIDs - Multiple gastric ulcers Plan: maintain on PPI BID oral PPI x 3months upon d/c f/u as outpatient Problem List - Problems (1) Duodenal ulcer Code(s): K26.9 - DUODENAL ULCER, UNSP ACUTE OR CHRONIC, W/O HEMOR OR PERF (2) Gastric ulcer Code(s): K25.9 - GASTRIC ULCER, UNSP ACUTE OR CHRONIC, W/O HEMOR OR PERF (3) Gastrointestinal hemorrhage with melena Code(s): K92.1 - MELENA
== END 2020-04-03 13:34 | disposition home or self-care (01) | DRG 378 ==
LOC: JER 18:44 → JERBED 19:23 → JICU 22:45 → J8W 04-01 07:02
PROVIDERS: ADMIT Internal Medicine Pulmonary Disease; ATTEND Nurse Practitioner Acute Care
PROC: 30233N1 Transfusion of Nonautologous Red Blood Cells into Peripheral Vein, Percutaneous Approach (ICD-10-PCS; 2020-03-30)
PROC: 0DJ08ZZ Inspection of Upper Intestinal Tract, Via Natural or Artificial Opening Endoscopic (ICD-10-PCS; principal; 2020-03-30 21:00)
DX: K26.4 Chronic or unspecified duodenal ulcer with hemorrhage (principal); D62 Acute posthemorrhagic anemia; K92.0 Hematemesis; E03.9 Hypothyroidism, unspecified; G43.909 Migraine, unspecified, not intractable, without status migrainosus; Z87.891 Personal history of nicotine dependence; Z79.1 Long term (current) use of non-steroidal anti-inflammatories (NSAID); K25.9 Gastric ulcer, unspecified as acute or chronic, without hemorrhage or perforation; F32.9 Major depressive disorder, single episode, unspecified; Z20.828 Contact with and (suspected) exposure to other viral communicable diseases; F10.10 Alcohol abuse, uncomplicated
CPT/HCPCS: 36415; 36430; 71045-TC-FY; 80053; 83036; 83605; 83735; 84484; 85025; 85027; 85610; 85730; 86140; 86850; 86900; 86901; 86922; 93005; 93010; 99285-25; J0131; J1756; P9038; P9058; U0003

== ENCOUNTER 2020-04-04 19:36 | Inpatient (IN) | payer BC ==
--- OUTSIDE RECORDS SUMMARY | 2020-04-04 19:52 | XMS ---
:1965 Author Organization [facility] Support Name Relationship Address Phone [employer] Unavailable [address] [facility] [phone] [place] [address] DANTE TREADWELL [address] [place] [address] Re-disclosure Warning The records that you are [...] is protected by Article 27-F of the [facility] Public Health law. If you continue you may haveaccess to information: Regarding HIV / AIDS; Provided by facilities licensed or operated by the [facility] Office of Mental Health; or Provided by the [facility] Office for People With Developmental Disabilities. If such information is present, then the following [facility] mandated warning applies: This information has [...] law may result in a fine or penitentiary sentence or both. A general authorization for the release of medical or other information is NOT sufficient authorization for further disclosure. Insurance Providers Payer name Policy type Policy ID Covered Covered democrat's Policy P susan / Coverage democrat ID relationship to [employer] type [employer] PPO [id number] [place] [id number] 1 [id number] HEALTHCARE Results ID Date Data Source [id number] 03/30/2020 07:57:00 PM EDT [facility] Name Value Range Interpretation Code Description Data Isi rce(s) Supporting Document(s ) SARS COV-2 [facility] RT-PCR This lab was ordered by [facility]. and reported by [facility]. Procedure
--- NOTE | 2020-04-04 20:33 | PDOC ---
History of Present Illness - General Chief Complaint: Wound Stated Complaint: ARM SWELLING/LIGHT HEADED Time Seen by Provider: 04/04/20 20:30 Past History - Medical History Allergies/Adverse Reactions: Allergies Allergy/AdvReac Type Severity Reaction Status Date / Time Sulfa (Sulfonamide Allergy Verified 04/04/20 20:42 Antibiotics) Home Medications: Ambulatory Orders Levothyroxine [Synthroid -] 88 mcg PO DAILY 05/25/12 Venlafaxine HCl [Effexor] 150 mg PO DAILY 03/31/20 Butalb/Acetaminophen/Caffeine [Fioricet 50-300-40 mg Capsule] 1 each PO Q6H #30 capsule 04/03/20 Mag Hydrox/Al Hydrox/Simeth [Mylanta Oral Suspension -] 30 ml PO Q6HPO cup 04/03/20 Pantoprazole Sodium [Protonix] 40 mg PO BID #60 tablet. 04/03/20 propRANOLol HCL [Inderal -] 20 mg PO BID tablet 04/03/20 COPD: No Thyroid Disease: Yes (hypothyroidism) - Reproductive History Is Patient Now?: No - Immunization History Td Vaccination: Yes TDAP Vaccination: Yes Immunization Up to Date: Yes - Psycho-Social/Smoking History Smoking Status: No Smoking History: Never smoked Have you smoked in the past 12 months: No Number of Cigarettes Smoked Daily: 0 If you are a former smoker, when did you quit?: 2008 - Substance Abuse Hx (Audit-C & DAST Scrn) How often the patient has a drink containing alcohol: Never Score: In Men: 4 or > Positive; In Women: 3 or > Positive: 0 Screen Result (Pos requires Nsg. Audit-10AR): Negative In the last yr the pt used illegal drug/Rx for NonMed reason: No Score: Yes response is considered Positive: 0 Screen Result (Positive result requires Nsg. DAST-10): Negative *Physical Exam - Vital Signs Last Vital Signs Temp Pulse Resp BP Pulse Ox 98 F 137 H 19 97/63 98 04/04/20 19:43 04/04/20 19:43 04/04/20 19:43 04/04/20 19:43 04/04/20 19:43 ED Treatment Course - LABORATORY CBC & Chemistry Diagram: 04/04/20 21:36 04/04/20 21:36 Medical Decision Making - Medical Decision Making 04/04/20 21:09 55yo F hx.... presents from home c/o worsening LUE pain and swelling s/p IV removal yesterday. Pt was admitted here for GI ulcer and had 2 IVs in R AC and 1 IV in L AC since Wednesday (5 days). No issues with the IVs during stay. L IV was used for blood transfusion, iron, and fluids per pt. Endorsed some pain at IV site during stay, but no erythema or swelling. Since discharge, pt developed worsening swelling, erythema, warmth, and pain. Denies purulence, bleeding, numbness/tingling, weakness, N/V, F/C, CP, SOB, pain meds tried, blood thinner use, travel, hx DVT/PE, hormone use, malignancy. PE Tachycardic LUE: erythema, warmth, firm, tender to touch Neurovascularly intact -Tylenol -CBC,CMP,Lact,BCx -US LUE r/o DVT -Vanc 04/04/20 22:56 Continued headache -Reglan Labs reviewed. Notable for WBC 11 04/04/20 23:48 US reviewed: cephalic SVT, large extent Discussed with Dr De Leon vascular - recommended to tx cellulitis as planned and warm compresses for cephalic SVT. No AC. 04/05/20 00:05 Admit cellulitis, superficial thrombophlebitis Discharge - Discharge Information Problems reviewed: Yes Clinical Impression/Diagnosis: Superficial thrombophlebitis, Left arm cellulitis Condition: Stable - Admission Yes - Follow up/Referral - Patient Discharge Instructions - Post Discharge Activity
[2020-04-04] MEDS ORDERED: ACETAMINOPHEN 500 MG TABLET (FP) PO ONE (20:56)
[2020-04-04] MEDS ORDERED: VANCOMYCIN 1 GM in D5W (PRE-DOCKED) 1,000 MG/250 ML IVPB ONE (21:29)
--- NOTE | 2020-04-04 21:39 | PDOC ---
Documentation entered by Kavita Anand SCRIBE, acting as scribe for Nadine Sparks DO. Nadine Sparks DO: This documentation has been prepared by the Kika macias Brenda, SCRIBE, under my direction and personally reviewed by me in its entirety. I confirm that the documentation accurately reflects all work, treatment, procedures, and medical decision making performed by me. Attending Attestation - Resident Resident Name: Hope Clarke - ED Attending Attestation I have performed the following: I have examined & evaluated the patient, The case was reviewed & discussed with the resident, I agree w/resident's findings & plan, Exceptions are as noted - HPI HPI: 04/04/20 20:52 The patient is a 55 year old female with a significant PMH of who presents to the emergency department for evaluation of worsening left upper extremity swelling and pain ever since an IV removal yesterday. Patient had IV in because she was admitted to this hospital since Wednesday for GI ulcer. Notes that the left IV was used for blood transfusion, iron and fluids (per patient). The patient denies bleeding, numbness/tingling. chest pain, shortness of breath, headache and dizziness. Denies fever, chills, nausea, vomiting, diarrhea and constipation. Denies any other symptoms. Social history: No reported hx of tobacco use, alcohol use or illicit drug use. - Physicial Exam PE: 04/04/20 20:52 GENERAL: Awake, alert, and fully oriented, in no acute distress NECK: Normal ROM, supple, no lymphadenopathy, JVD, or masses LUNGS: Breath sounds equal, clear to auscultation bilaterally. No wheezes, and no crackles HEART: (+) Tachy. Regular rhythm, normal S1 and S2, no murmurs, rubs or gallops ABDOMEN: Soft, nontender, normoactive bowel sounds. No guarding, no rebound. No masses EXTREMITIES: (+) LUE holding in contraction and flexion due to soft tissue swelling. (+( Lymphangitic spread up to medial aspect of arm, but not to shoulder. () Warm (+) Hot (+) Swollen and tender (+) Limited ROM due to swelling and pain. Brisk Capillary Refill. Pulses intact. Normal range of motion, no edema. No clubbing or cyanosis. No cords, erythema, or tenderness NEUROLOGICAL: Cranial nerves II through XII grossly intact. Normal speech, normal gait SKIN: Warm, Dry, normal turgor. - Medical Decision Making 04/04/20 21:36 a/p: 55yo female with recent hospitalization, IV removed yesterday at discharge with LUE swelling -pt with soft tissue swelling, cellulitis, warmth, ttp, induration to the L antecubital fossa at prior iv site -concern for superficial thrombophlebitis with assoc cellulitis -will send labs, cultures, iv abx -will send for ultrasound to eval for clot -will give tylenol for pain 04/04/20 23:02 wbc 11 04/04/20 23:27 pt with a clot in the cephalic vein in the arm pt with recent GI bleed 3 days ago, dc yesterday call placed to DR. De Leon - Vascular sx to discuss treatment 04/04/20 23:[address] De Leon, warm compresses and treat cellulitis 04/05/20 00:03 pt with arm cellulitis iv abx given 04/05/20 00:03 microblog sent to [facility] for admission Discharge - Discharge Information Problems reviewed: Yes Clinical Impression/Diagnosis: Superficial thrombophlebitis, Left arm cellulitis Condition: Fair - Admission Yes - Follow up/Referral - Patient Discharge Instructions - Post Discharge Activity
[2020-04-04] MEDS ORDERED: ACETAMINOPHEN 325 MG TABLET (FP) ONE (21:41)
[2020-04-04] MEDS ORDERED: VANCOMYCIN 1 GRAM (PRE-DOCKED) 1,000 MG/250 ML BAG IVPB ONE (21:59)
[2020-04-04 22:16] LABS: BASO % 0.5 % (0-2.0); EOS % 0.8 % (0-4.5); HEMATOCRIT 26.3 % (32.4-45.2); HEMOGLOBIN 9.1 GM/dL (10.7-15.3); LYMPH % 12.8 % (8-40); MCH 32.3 pg (25.7-33.7); MCHC 34.7 g/dl (32.0-36.0); MEAN CELL VOLUME 93.2 fl (80-96); MEAN PLT VOLUME 8.5 fl (7.5-11.1); MONO % 10.1 % (3.8-10.2); NEUT % 75.8 % (42.8-82.8); PLATELET COUNT 213 K/MM3 (134-434); RBC 2.83 M/mm3 (3.60-5.2); RDW 14.3 % (11.6-15.6)
[2020-04-04 22:44] LABS: ALBUMIN 3.1 g/dl (3.4-5.0); BILIRUBIN,TOTAL 0.3 mg/dL (0.2-1); BLOOD UREA NITROGEN 17.7 mg/dL (7-18); CALCIUM 8.2 mg/dL (8.5-10.1); CREATININE 0.8 mg/dL (0.55-1.3); POTASSIUM 3.6 mmol/L (3.5-5.1); TOT PROT 6.3 g/dl (6.4-8.2)
[2020-04-04] MEDS ORDERED: METOCLOPRAMIDE HCL INJECTION 10 MG/2 ML VIAL IVPB ONE (22:55)
[2020-04-04] MEDS ORDERED: METOCLOPRAMIDE HCL INJECTION 10 MG/2 ML VIAL ONE (23:02)
--- NOTE | 2020-04-05 00:42 | PN ---
Teaching Attending Note Name of Resident: Nadia Quijano ATTENDING PHYSICIAN STATEMENT I saw and evaluated the patient. I reviewed the resident's note and discussed the case with the resident. I agree with the resident's findings and plan as documented. SUBJECTIVE: Patient is a 55 year old woman with a PMH of Hypothyroidism, Depression, Wilner sybil, Daily alcohol use, GI bleeding and Recent episodes of hematemesis who presents to the ER for evaluation of worsening left upper extremity swelling and pain ever since an IV removal yesterday. Patient had IV in because she was admitted to this hospital since Wednesday for GI ulcer. Patient reports that the left IV was used for blood transfusion, iron and fluids. The patient denies bleeding, chest pain, shortness of breath, abdominal pain, headache, palpitations, dizziness, fever, chills, nausea, vomiting, diarrhea, constipation, dysuria, frequency, urgency, melena, hematochezia or hematuria. Denies alcohol, tobacco or illicit drug use. No sick contacts or recent travels. Family history of hypertension in both parents. OBJECTIVE: Alert Vital Signs Period Temp Pulse Resp BP Sys/Garza Pulse Ox Last 24 Hr 98 F 137 19 97/63 98-98 HEENT: No Jaundice, eye redness or discharge, PERRLA, EOMI. Normocephalic, atraumatic. External ears are normal and hearing is grossly intact. No nasal discharge. Neck: Supple, nontender. No palpable adenopathy or thyromegaly. No JVD Chest: Good effort. Clear to auscultation and percussion. Heart: Regular. No S3, rub or murmur Abdomen: Not distended, soft, nontender and no HSM. No rebound or guarding. Normal bowel sounds. Ext: Peripheral pulses intact. No leg edema. LUE soft tissue swelling with erythema, warmth, firm, tender to touch; flexion contraction due to soft tissue swelling. Distal motor and sensory function intact. Pulses intact. Skin: Warm and dry. No petechiae, rash or ecchymosis. Neuro: Alert. Oriented x3. CN 2-12 grossly intact. Sensation grossly intact in all four extremities and DTR are symmetric. Psych: Appropriate mood and affect. Good insight. Home Medications Medication Instructions Recorded Levothyroxine [Synthroid -] 88 mcg PO DAILY 05/25/12 Venlafaxine HCl [Effexor] 150 mg PO DAILY 03/31/20 Butalb/Acetaminophen/Caffeine 1 each PO Q6H #30 capsule 04/03/20 [Fioricet 50-300-40 mg Capsule] Mag Hydrox/Al Hydrox/Simeth 30 ml PO Q6HPO cup 04/03/20 [Mylanta Oral Suspension -] Pantoprazole Sodium [Protonix] 40 mg PO BID #60 tablet. 04/03/20 propRANOLol HCL [Inderal -] 20 mg PO BID tablet 04/03/20 Abnormal Lab Results 04/04/20 04/04/20 21:36 21:36 WBC 11.0 H RBC 2.83 L Hgb 9.1 L Hct 26.3 L Absolute Neuts (auto) 8.3 H Anion Gap 5 L Calcium 8.2 L AST 9 L ALT 10 L Total Protein 6.3 L Albumin 3.1 L Current Medications Generic Name Dose Route Start Last Admin Trade Name Freq PRN Reason Stop Dose Admin Acetaminophen 650 mg 04/05/20 02:38 Tylenol - PO Q4H PRN PAIN LEVEL 6-10 Enoxaparin Sodium 40 mg 04/05/20 10:00 Lovenox - SQ DAILY KATLIN Vancomycin HCl 1,000 mg/ 250 mls @ 166.667 mls/hr 04/05/20 10:00 Dextrose IVPB Q12H KATLIN Protocol Pantoprazole Sodium 40 mg 04/05/20 10:00 Protonix - PO BID [facility] ASSESSMENT AND PLAN: 1. LUE Cellulitis/Thrombophlebitis - Upper extremity artery duplex scan shows left cephalic thrombophlebitis. ER staff discussed with Dr De Leon - Vascular surgeon - who recommended to antibiotics for cellulitis and warm compresses for cephalic SVT but no anticoagulation. Viral testing for COVID-19 ordered and patient placed on airborne, droplet and contact isolation. Blood culture being done and patient being treated with IV Vancomycin and PO Protonix. Will elevate LUE when supine and consult ID. EKG shows NSR at 98/minute and QTc 480 with no significant acute ischemic ST-T wave changes. Prolonged QTc is new compared to prior EKG from 04/01/2020. Initial troponin is negative. Will check magnesium, phosphate, TSH and avoid drugs that may prolong QTc. Repeat EKG tomorrow. Will continue comprehensive care for all of patients comorbid conditions including Synthroid for hypothyroidism. 2. Hypoalbuminemia - Possibly due to combined effects of malnutrition and inflammation associated with comorbid conditions. Will ensure adequate dietary protein intake and also consult health lead. Urinalysis pending. 3. Anemia Likely chiefly due to recent blood loss. Will do basic anemia work up including serial stool guaiacs, reticulocyte count and iron studies. 4. Daily alcohol use Will implement [facility] alcohol withdrawal protocol and do neurochecks. Implement seizure, fall and aspiration precautions. Treat with IV Banana bag, thiamine and folic acid. Monitor and replete electrolytes (Ca,Mg,K,P). Counseled patient about abstaining from alcohol. Will consult marketing proposal specialist and refer to alcohol detox upon discharge. 5. DVT prophylaxis - Lovenox 40 mg SQ q 24 hours. 6. Advance directives - Full code
[2020-04-05] MEDS ORDERED: SODIUM CHLORIDE 0.9% 500 ML INFUS.BAG IV ONE (01:09)
--- OUTSIDE RECORDS SUMMARY | 2020-04-05 01:22 | XMS ---
:1965 Author Organization [facility] Support Name Relationship Address Phone [employer] Unavailable [phone] [place] [address] DANTE TREADWELL [address] [place] [address] Re-disclosure Warning The records that you are [...] is protected by Article 27-F of the [facility] Public Health law. If you continue you may haveaccess to information: Regarding HIV / AIDS; Provided by facilities licensed or operated by the [facility] Office of Mental Health; or Provided by the [facility] Office for People With Developmental Disabilities. If such information is present, then the following [facility] mandated warning applies: This information has been [...] law may result in a fine or residential sentence or both. A general authorization for the release of medical or other information is NOT sufficient authorization for further disclosure. Insurance Providers Payer name Policy type Policy ID Covered Covered green party's Policy P susan / Coverage green party ID relationship to [employer] type [employer] P[employer] [id number] [id number] 1 [id number] HEALTHCARE Results ID Date Data Source [id number] 03/30/2020 07:57:00 PM EDT [facility] Name Value Range Interpretation Code Description Data Isi rce(s) Supporting Document(s ) SARS COV-2 [facility] RT-PCR This lab was ordered by [facility]. and reported by [facility]. Procedure
--- NOTE | 2020-04-05 01:57 | HP ---
CHIEF COMPLAINT: Left arm swelling at previous IV site HISTORY OF PRESENT ILLNESS: Alexa Camarena is a 55 year old woman PMH hypothyroidism, migraines, discharged from [facility] yesterday (had been admitted with a GI bleed), who is presenting with swelling and erythema in the left antecubital fossa at the site of her previous iv. Patient states she received blood and iron through the line during her recent admission. At discharge, there was no apparent skin irritation, however within hours of discharge she developed erythema, tenderness and swelling that rapidly extended up the arm. ER course was notable for: - U/S revealing superficial thrombosis of left cephalic vein - T 98.7, 111/71, RR 18, O2 sat 98 on room air Recent Travel:none PAST MEDICAL HISTORY: Hypothyroidism Migraines GI bleed (duodenal ulcer secondary to NSAID use) PAST SURGICAL HISTORY: none Social History: Smoking:no Alcohol:denies but chart reveals alcohol use disorder recently Drugs: no Allergies Sulfa (Sulfonamide Antibiotics) Allergy (Verified 04/04/20 20:42) HOME MEDICATIONS: Home Medications Medication Instructions Recorded Levothyroxine [Synthroid -] 88 mcg PO DAILY 05/25/12 Venlafaxine HCl [Effexor] 150 mg PO DAILY 03/31/20 Butalb/Acetaminophen/Caffeine 1 each PO Q6H #30 capsule 04/03/20 [Fioricet 50-300-40 mg Capsule] Mag Hydrox/Al Hydrox/Simeth 30 ml PO Q6HPO cup 04/03/20 [Mylanta Oral Suspension -] Pantoprazole Sodium [Protonix] 40 mg PO BID #60 tablet. 04/03/20 propRANOLol HCL [Inderal -] 20 mg PO BID tablet 04/03/20 REVIEW OF SYSTEMS SEE HPI PHYSICAL EXAMINATION Vital Signs - 24 hr 04/04/20 04/04/20 04/05/20 19:43 22:11 01:14 Temperature 98 F 98.7 F Pulse Rate 137 H Pulse Rate [ 101 H Right Radial] Respiratory 19 18 Rate Blood Pressure 97/63 Blood Pressure 111/71 [Right Arm] O2 Sat by Pulse 98 98 98 Oximetry (%) GENERAL: Awake, alert, and fully oriented, in no acute distress. HEAD: Normal with no signs of trauma. EYES: Pupils equal, round and reactive to light, extraocular movements intact EARS, NOSE, THROAT: Ears normal, nares patent, oropharynx clear without exudates. LUNGS: Breath sounds equal, clear to auscultation bilaterally. No wheezes, and no crackles. No accessory muscle use. HEART: Regular rate and rhythm, normal S1 and S2 without murmur, rub or gallop. ABDOMEN: Soft, nontender, not distended, normoactive bowel sounds, no guarding, no rebound, no masses. UPPER EXTREMITIES: swelling, erythema, tenderness overlying the left antecubital fossa; swelling continuing up arm; limited ROM LOWER EXTREMITIES: 2+ pulses, warm, well-perfused. No calf tenderness. No peripheral edema. Laboratory Results - last 24 hr 04/04/20 04/04/20 04/04/20 21:36 21:36 21:36 WBC 11.0 H RBC 2.83 L Hgb 9.1 L Hct 26.3 L MCV 93.2 MCH 32.3 MCHC 34.7 RDW 14.3 Plt Count 213 D MPV 8.5 Absolute Neuts (auto) 8.3 H Neutrophils % 75.8 D Lymphocytes % 12.8 D Monocytes % 10.1 Eosinophils % 0.8 Basophils % 0.5 Nucleated RBC % 0 Sodium 137 Potassium 3.6 Chloride 103 Carbon Dioxide 29 Anion Gap 5 L BUN 17.7 Creatinine 0.8 Est GFR (CKD-EPI)AfAm 96.87 Est GFR (CKD-EPI)NonAf 83.58 Random Glucose 106 Lactic Acid 1.4 Calcium 8.2 L Total Bilirubin 0.3 AST 9 L ALT 10 L Alkaline Phosphatase 68 Total Protein 6.3 L Albumin 3.1 L ASSESSMENT/PLAN: Alexa Camarena is a 55 year old woman PMH discharged from [facility] yesterday (had been admitted with a GI bleed), who is presenting with swelling and erythema in the left antecubital fossa at the site of her previous iv with US revealing superficial venous thrombosis at the R cephalic vein #Superficial thrombosis R cephalic vein with overlying cellulitis - Vascular suggesting warm compresses with no anticoagulation indicated at this time - Advise to raise the extremity over pillows - Continue Vancomycin; patient recently hospitalized and at risk for MRSA - ID consulted # Recent GI bleed - Continue protonix #Anemia - Likely secondary to GI bleed but r/o iron def anemia - F/U iron studies, ferritin - replete iron as needed #Borderline high QTc avoid QTc prolonging medications; consider EKG later today #Leukocytosis - Likely secondary to cellulitis - F/u UA #Recent hx of alcohol use disorder - Alcohol withdrawal protocol - Frequent neuro checks - Monitor electrolytes Mag, phos #Hypothyroidism - Continue synthroid -- reconcile med - F/U TSH DVT prophylaxis: Lovenox -- low threshold to hold given recent GI bleed FEN - No standing fluids - Monitor am labs; mag, phos - Regular diet Dispo: Med surg Family Medical History Family History: As Documented Visit type - Emergency Visit Emergency Visit: Yes ED Registration Date: 04/05/20 Care time: The patient presented to the Emergency Department on the above date and was hospitalized for further evaluation of their emergent condition. - New Patient This patient is new to me today: Yes Date on this admission: 04/05/20 - Critical Care Critical Care patient: No ATTENDING PHYSICIAN STATEMENT I saw and evaluated the patient. I reviewed the resident's note and discussed the case with the resident. I agree with the resident's findings and plan as documented. SUBJECTIVE: OBJECTIVE: ASSESSMENT AND PLAN:
[2020-04-05] MEDS ORDERED: ACETAMINOPHEN 325 MG TABLET (FP) ONE (07:44)
[2020-04-05 07:46] LABS: BASO % 0.2 % (0-2.0); EOS % 0.9 % (0-4.5); HEMATOCRIT 24.7 % (32.4-45.2); HEMOGLOBIN 8.5 GM/dL (10.7-15.3); LYMPH % 15.1 % (8-40); MCH 31.7 pg (25.7-33.7); MCHC 34.3 g/dl (32.0-36.0); MEAN CELL VOLUME 92.5 fl (80-96); MEAN PLT VOLUME 8.1 fl (7.5-11.1); MONO % 13.1 % (3.8-10.2); NEUT % 70.7 % (42.8-82.8); PLATELET COUNT 198 K/MM3 (134-434); RBC 2.67 M/mm3 (3.60-5.2); RDW 14.5 % (11.6-15.6); WHITE BLOOD COUNT 10.7 K/mm3 (4.0-10.0)
[2020-04-05 07:47] LABS: ALBUMIN 2.8 g/dl (3.4-5.0); BILIRUBIN,TOTAL 0.2 mg/dL (0.2-1); BLOOD UREA NITROGEN 14.8 mg/dL (7-18); CALCIUM 7.4 mg/dL (8.5-10.1); CREATININE 0.5 mg/dL (0.55-1.3); PHOSPHOROUS 2.4 mg/dL (2.5-4.9); POTASSIUM 3.5 mmol/L (3.5-5.1); TOT PROT 5.7 g/dl (6.4-8.2)
[2020-04-05 07:48] LABS: IRON SERUM 15 ug/dL (50-175)
[2020-04-05 07:50] LABS: TOTAL IRON BINDING CAPACITY 263 ug/dL (250-450)
[2020-04-05] MEDS: ACETAMINOPHEN 325 MG TABLET (FP) PO PRN (07:57)
[2020-04-05 08:02] LABS: MAGNESIUM 2.2 mg/dL (1.8-2.4)
[2020-04-05] MEDS ORDERED: ACETAMINOPHEN/CAFFEINE/BUTALBITAL 1 TAB ONE ×2 (09:51→16:42)
[2020-04-05] MEDS ORDERED: POTASSIUM CHLORIDE TABS 20 MEQ TABLET.ER (FP) PO ONE ×2 (10:00→11:04)
--- NOTE | 2020-04-05 10:32 | EKG ---
Test Reason : Blood Pressure : / mmHG Vent. Rate : 098 BPM Atrial Rate : 098 BPM P-R Int : 148 ms QRS Dur : 104 ms QT Int : 376 ms P-R-T Axes : 081 068 045 degrees QTc Int : 480 ms NORMAL SINUS RHYTHM NONSPECIFIC ST ABNORMALITY PROLONGED QT ABNORMAL ECG WHEN COMPARED WITH ECG OF 30-MAR-2020 20:49, NO SIGNIFICANT CHANGE WAS FOUND Confirmed by LUDY ENRIQUE MD ([id number]) on 04/05/2020 10:32:41 AM Referred By: Confirmed By:LUDY ENRIQUE MD
[2020-04-05] MEDS ORDERED: ACETAMINOPHEN/CAFFEINE/BUTALBITAL 1 TAB PO ONE (11:04)
[2020-04-05] MEDS ORDERED: PANTOPRAZOLE 40 MG TABLET ONE (11:04)
[2020-04-05] MEDS: PANTOPRAZOLE 40 MG TABLET PO SCH ×2 (11:13→22:25)
[2020-04-05] MEDS: ENOXAPARIN NA (PORCINE) 40 MG/0.4 ML DISP.SYRIN SQ SCH (11:13)
--- NOTE | 2020-04-05 13:37 | HOSP ---
Subjective - Review of Symptoms Events since last encounter: Seen and examined in ED. C/o of head aches and pain in left arm for old insertion site from IV HEENT: Yes: Head Aches Other Systems: Extrem: left AC swelling, erythema,TTP; swelling continuing up arm; limited ROM Physical Examination Vital Signs: Vital Signs Temperature 97.4 F L 04/05/20 10:00 Pulse Rate 86 04/05/20 10:00 Respiratory Rate 18 04/05/20 06:55 Blood Pressure 140/88 04/05/20 10:00 O2 Sat by Pulse Oximetry (%) 99 04/05/20 10:00 Constitutional: Yes: Well Nourished, No Distress, Calm Eyes: Yes: WNL, Conjunctiva Clear, EOM Intact HENT: Yes: WNL, Atraumatic, Normocephalic Neck: Yes: WNL, Supple, Trachea Midline Cardiovascular: Yes: WNL, Regular Rate and Rhythm Respiratory: Yes: WNL, Regular, CTA Bilaterally Gastrointestinal: Yes: WNL, Normal Bowel Sounds ...Rectal Exam: Yes: Deferred Renal/: Yes: WNL Breast(s): Yes: WNL Extremities: Yes: Other (swelling, erythema, tenderness overlying the left antecubital fossa; swelling continuing up arm; limited ROM) Edema: Yes Edema: LUE: 1+ Peripheral Pulses WNL: Yes Peripheral Pulses: Left Radial: 2+, Right Radial: 2+, Left Doralis Pedis: 2+, Right Dorsalis Pedis: 2+, Left Femoral: 2+, Right Femoral: 2+ Integumentary: Yes: Erythema (to left AC) Neurological: Yes: Other (head) ...Motor Strength: WNL Psychiatric: Yes: WNL Labs: CBC, BMP 04/05/20 06:50 04/05/20 06:50 Hospitalist Encounter Assessment: 55 year old woman PMH discharged from [facility] yesterday, who is presenting with swelling and erythema in the left antecubital fossa at the site of her previous IV with US revealing superficial venous thrombosis at the R cephalic vein Superficial thrombosis R cephalic vein with overlying cellulitis - Vascular consulted --> warm compresses with no anticoagulation indicated at this time - elevate (Dr Argueta to see) extremity over pillows - Continue Vancomycin; patient recently hospitalized and at risk for MRSA - ID consulted # Recent GI bleed - Continue protonix -no further bleeding #Anemia - Likely secondary to recent GI bleed #Leukocytosis - Likely secondary to cellulitis - F/u UA #Recent hx of alcohol use disorder #Hypothyroidism - Continue synthroid -- reconcile med - F/U TSH FEN Fluids: adequate PO intake Electrolytes: monitor & replete as needed Nutrition: reg diet DVT lovenox Dispo Maintain as inpatient full code discharge planning Full note to follow tomorrow
[2020-04-05] MEDS ORDERED: VANCOMYCIN 1 GRAM (PRE-DOCKED) 1,000 MG/250 ML BAG IVPB ONE (16:43)
[2020-04-05] MEDS ORDERED: VANCOMYCIN 1 GRAM (PRE-DOCKED) 1,000 MG/250 ML BAG IVPB SCH (16:45)
[2020-04-05] MEDS: ACETAMINOPHEN/CAFFEINE/BUTALBITAL 1 TAB PO PRN ×2 (17:03→22:25)
[2020-04-05] MEDS: VANCOMYCIN 1 GRAM (PRE-DOCKED) 1,000 MG/250 ML BAG IVPB SCH (17:03)
[2020-04-05 20:05] LABS: EPI CELLS 10 /uL (0-25.1); HYALINE CASTS 1 /uL (0-3.1); PH,URINE 7.5 (5.0-8.0); URINE APPEARANCE CLEAR; URINE BACTERIA 62 /uL (0-1359); URINE BILIRUBIN NEGATIVE (NEGATIVE); URINE COLOR YELLOW; URINE GLUCOSE (UA) NEGATIVE (NEGATIVE); URINE KETONE NEGATIVE (NEGATIVE); URINE LEUK ESTERASE TRACE (NEGATIVE); URINE NITRITE NEGATIVE (NEGATIVE); URINE PROTEIN NEGATIVE (NEGATIVE); URINE RBC 5 /uL (0-23.9); URINE UROBILINOGEN 0.2 mg/dL (0.2-1.0); URINE WBC 22 /uL (0-25.8)
[2020-04-06] MEDS ORDERED: PNEUMOC 13-VAL CONJ-DIP CRM/PF 0.5 ML DISP.SYRIN IM ONE (03:21)
[2020-04-06 03:36] VITALS: BMI 20.3
[2020-04-06] MEDS: VANCOMYCIN 1 GRAM (PRE-DOCKED) 1,000 MG/250 ML BAG IVPB SCH ×2 (03:45→21:17)
[2020-04-06] MEDS: ACETAMINOPHEN/CAFFEINE/BUTALBITAL 1 TAB PO PRN ×3 (06:36→21:22)
[2020-04-06 06:47] LABS: BASO % 0.5 % (0-2.0); EOS % 1.6 % (0-4.5); HEMATOCRIT 25.6 % (32.4-45.2); HEMOGLOBIN 8.8 GM/dL (10.7-15.3); LYMPH % 13.7 % (8-40); MCH 31.7 pg (25.7-33.7); MCHC 34.4 g/dl (32.0-36.0); MEAN CELL VOLUME 92.3 fl (80-96); MEAN PLT VOLUME 8.2 fl (7.5-11.1); MONO % 10.7 % (3.8-10.2); NEUT % 73.5 % (42.8-82.8); PLATELET COUNT 266 K/MM3 (134-434); RBC 2.78 M/mm3 (3.60-5.2); RDW 14.5 % (11.6-15.6); WHITE BLOOD COUNT 9.8 K/mm3 (4.0-10.0)
[2020-04-06 07:55] LABS: BILIRUBIN,TOTAL 0.2 mg/dL (0.2-1); BLOOD UREA NITROGEN 10.8 mg/dL (7-18); CALCIUM 8.7 mg/dL (8.5-10.1); CREATININE 0.7 mg/dL (0.55-1.3); MAGNESIUM 2.1 mg/dL (1.8-2.4); POTASSIUM 4.1 mmol/L (3.5-5.1); TOT PROT 6.2 g/dl (6.4-8.2)
[2020-04-06] MEDS ORDERED: SUMAtriptan SUCCINATE 50 MG TABLET PO ONE (10:15)
[2020-04-06] MEDS: PANTOPRAZOLE 40 MG TABLET PO SCH ×2 (10:59→21:21)
[2020-04-06] MEDS: ACETAMINOPHEN 325 MG TABLET (FP) PO PRN ×2 (11:04→21:20)
[2020-04-06] MEDS: ENOXAPARIN NA (PORCINE) 40 MG/0.4 ML DISP.SYRIN SQ SCH (11:06)
[2020-04-06] MEDS ORDERED: PNEUMOCOCCAL 23 VACCINE 0.5 ML VIAL IM ONE (13:30)
[2020-04-06] MEDS ORDERED: FLU VACCINE (FLULAVAL) PF 60 MCG/0.5 ML SYRINGE 2020-2021 IM ONE (13:30)
--- NOTE | 2020-04-06 14:18 | PN ---
Progress Note, Physician Chief Complaint: Seen and examined. Migraine persists. Left arm swelling and erythema remains. Elevated on pillow History of Present Illness: 55 year old woman PMH discharged from [facility] yesterday (had been admitted with a GI bleed), who is presenting with swelling and erythema in the left antecubital fossa at the site of her previous iv with US revealing superficial venous thrombosis at the R cephalic vein - Current Medication List Current Medications: Active Medications Acetaminophen (Tylenol -) 650 mg PO Q4H PRN PRN Reason: PAIN LEVEL 6-10 Last Admin: 04/06/20 11:04 Dose: 650 mg Documented by: Acetaminophen/Butalbital/Caffeine (Fioricet -) 1 tablet PO Q6H PRN PRN Reason: HEADACHE Last Admin: 04/06/20 06:36 Dose: 1 tablet Documented by: Enoxaparin Sodium (Lovenox -) 40 mg SQ DAILY KATLIN Last Admin: 04/06/20 11:06 Dose: Not Given Documented by: Vancomycin HCl 1,000 mg/ (Dextrose) 250 mls @ 166.667 mls/hr IVPB Q12H KATLIN; Pr otocol Pantoprazole Sodium (Protonix -) 40 mg PO BID KATLIN Last Admin: 04/06/20 10:59 Dose: 40 mg Documented by: - Objective Vital Signs: Vital Signs Temperature 98.9 F 04/06/20 06:00 Pulse Rate 110 H 04/06/20 06:00 Respiratory Rate 18 04/06/20 06:00 Blood Pressure 123/74 04/06/20 06:00 O2 Sat by Pulse Oximetry (%) 98 04/06/20 09:00 Additional Findings/Remarks: Constitutional: Yes: Well Nourished, No Distress, Calm Eyes: Yes: WNL, Conjunctiva Clear HENT: Yes: WNL, Atraumatic, Normocephalic Neck: Yes: WNL, Supple, Trachea Midline Cardiovascular: Yes: WNL, Regular Rate and Rhythm Respiratory: Yes: WNL, Regular, CTA Bilaterally Gastrointestinal: Yes: WNL, Normal Bowel Sounds, Hematemesis (resolved), Rectal Bleeding (resolved) ...Rectal Exam: Yes: Deferred Genitourinary: Yes: WNL Breast(s): Yes: WNL Musculoskeletal: Yes: WNL Extremities: Yes: Other (swelling, erythema, tenderness overlying the left antecubital fossa; swelling continuing up arm; limited ROM) Edema: Yes Edema: LUE: 1+ Peripheral Pulses WNL: Yes Peripheral Pulses: Left Radial: 2+, Right Radial: 2+, Left Doralis Pedis: 2+, Right Dorsalis Pedis: 2+, Left Femoral: 2+, Right Femoral: 2+ Integumentary: Yes: WNL Neurological: Yes: WNL, Alert, Oriented ...Motor Strength: WNL Psychiatric: Yes: WNL Labs: CBC, BMP 04/06/20 06:18 04/06/20 06:18 Problem List - Problems (1) Prophylactic measure Assessment/Plan: FEN Fluids: adequate PO intake Electrolytes: monitor & replete as needed Nutrition: reg diet DVT moderate risk sq lovenox Dispo Maintain as inpatient full code discharge planning Code(s): Z29.9 - ENCOUNTER FOR PROPHYLACTIC MEASURES, UNSPECIFIED (2) Left arm cellulitis Assessment/Plan: c/w abx elevate arm Code(s): L03.114 - CELLULITIS OF LEFT UPPER LIMB (3) Superficial thrombophlebitis Assessment/Plan: Superficial thrombosis R cephalic vein with overlying cellulitis seen on US Vascular consulted --> warm compresses with no additional anticoagulation indicated at this time c/w DVT proph elevate arm over pillows Dr Argueta to see c/w Vancomycin; patient recently hospitalized and at risk for MRSA Code(s): I80.9 - PHLEBITIS AND THROMBOPHLEBITIS OF UNSPECIFIED SITE (4) Acute blood loss anemia Assessment/Plan: resolved Code(s): D62 - ACUTE POSTHEMORRHAGIC ANEMIA (5) COVID-19 ruled out Assessment/Plan: negative pcr Code(s): Z03.818 - ENCNTR FOR OBS FOR SUSP EXPSR TO OTH BIOLG AGENTS RULED OUT (6) Gastric ulcer Assessment/Plan: Recent admission for gastric ulcer, resolved Postbulbar duodenal ulcer bleed most likely due to NSAIDs Multiple gastric ulcers c/w PPI Code(s): K25.9 - GASTRIC ULCER, UNSP ACUTE OR CHRONIC, W/O HEMOR OR PERF (7) Hypothyroid Assessment/Plan: c/w synthroid Code(s): E03.9 - HYPOTHYROIDISM, UNSPECIFIED (8) Migraine Assessment/Plan: takes a triptan at home that is not on formuklary sumatriptan 50mg x 1 and can repeat in 2 hours Mg 2.1 Code(s): G43.909 - MIGRAINE, UNSP, NOT INTRACTABLE, WITHOUT STATUS MIGRAINOSUS (9) Depression Assessment/Plan: emotional support Code(s): F32.9 - MAJOR DEPRESSIVE DISORDER, SINGLE EPISODE, UNSPECIFIED Visit type - Emergency Visit Emergency Visit: Yes ED Registration Date: 04/05/20 Care time: The patient presented to the Emergency Department on the above date and was hospitalized for further evaluation of their emergent condition. - New Patient This patient is new to me today: No - Critical Care Critical Care patient: No - Discharge Referral Referred to [facility] Med P.C.: No
[2020-04-06] MEDS ORDERED: MAGNESIUM OXIDE 400 MG TABLET (FP) PO ONE (18:05)
[2020-04-06] MEDS ORDERED: VANCOMYCIN 1 GM in D5W (PRE-DOCKED) 1,000 MG/250 ML IVPB SCH (18:15)
[2020-04-06] MEDS ORDERED: SUMATRIPTAN SUCCINATE 6 MG/0.5 ML VIAL SQ ONE (18:30)
[2020-04-06] MEDS: VANCOMYCIN 1,000 MG in DEXTROSE 5%-WATER - 250 ML IVPB SCH ×2 (21:23→21:24)
--- NOTE | 2020-04-06 23:06 | PN ---
Progress Note, Physician History of Present Illness: ID CONSULT DICTATED - Current Medication List Current Medications: Active Medications Acetaminophen (Tylenol -) 650 mg PO Q4H PRN PRN Reason: PAIN LEVEL 6-10 Last Admin: 04/06/20 21:20 Dose: 650 mg Documented by: Acetaminophen/Butalbital/Caffeine (Fioricet -) 1 tablet PO Q6H PRN PRN Reason: HEADACHE Last Admin: 04/06/20 21:22 Dose: 1 tablet Documented by: Enoxaparin Sodium (Lovenox -) 40 mg SQ DAILY [facility] Last Admin: 04/06/20 11:06 Dose: Not Given Documented by: Vancomycin HCl (Vancomycin (Pre-Docked)) 1,000 mg in 250 mls @ 166.667 mls/hr IVPB Q12H KATLIN; Protocol Last Admin: 04/06/20 21:17 Dose: 166.667 mls/hr Documented by: Pantoprazole Sodium (Protonix -) 40 mg PO BID [facility] Last Admin: 04/06/20 21:21 Dose: 40 mg Documented by: - Objective Vital Signs: Vital Signs Temperature 98.5 F 04/06/20 14:00 Pulse Rate 121 H 04/06/20 14:00 Respiratory Rate 18 04/06/20 06:00 Blood Pressure 122/77 04/06/20 14:00 O2 Sat by Pulse Oximetry (%) 98 04/06/20 09:00 Labs: CBC, BMP 04/06/20 06:18 04/06/20 06:18 Assessment/Plan CATHETER-RLATED PHLEBITIS/ CELLULITIS SUPERFICIAL THROMBOPHLEBITIS AWAIT C/S CONTINUE VANCO WARM COMPRESSES
[2020-04-07] MEDS: VANCOMYCIN 1 GRAM (PRE-DOCKED) 1,000 MG/250 ML BAG IVPB SCH ×2 (05:27→17:45)
[2020-04-07] MEDS: ACETAMINOPHEN 325 MG TABLET (FP) PO PRN ×2 (05:29→20:51)
[2020-04-07] MEDS: ACETAMINOPHEN/CAFFEINE/BUTALBITAL 1 TAB PO PRN ×2 (05:30→14:10)
[2020-04-07 07:37] LABS: BASO % 0.7 % (0-2.0); EOS % 2.3 % (0-4.5); HEMATOCRIT 28.1 % (32.4-45.2); HEMOGLOBIN 9.6 GM/dL (10.7-15.3); LYMPH % 15.1 % (8-40); MCH 31.5 pg (25.7-33.7); MEAN CELL VOLUME 92.7 fl (80-96); MEAN PLT VOLUME 8.2 fl (7.5-11.1); MONO % 11.1 % (3.8-10.2); NEUT % 70.8 % (42.8-82.8); PLATELET COUNT 330 K/MM3 (134-434); RBC 3.04 M/mm3 (3.60-5.2); RDW 14.9 % (11.6-15.6); WHITE BLOOD COUNT 10.4 K/mm3 (4.0-10.0)
[2020-04-07 08:06] LABS: BLOOD UREA NITROGEN 16.7 mg/dL (7-18); CREATININE 0.7 mg/dL (0.55-1.3); MAGNESIUM 2.3 mg/dL (1.8-2.4); POTASSIUM 3.7 mmol/L (3.5-5.1)
[2020-04-07 08:24] LABS: BILIRUBIN,TOTAL 0.2 mg/dL (0.2-1); CALCIUM 9.1 mg/dL (8.5-10.1); TOT PROT 6.8 g/dl (6.4-8.2)
[2020-04-07] MEDS: PANTOPRAZOLE 40 MG TABLET PO SCH ×2 (10:33→21:19)
[2020-04-07] MEDS: ENOXAPARIN NA (PORCINE) 40 MG/0.4 ML DISP.SYRIN SQ SCH (10:35)
--- NOTE | 2020-04-07 14:46 | PN ---
Progress Note, Physician Chief Complaint: Seen and examined. Migraine resolved with imitrex sq. Left arm swelling and erythema remains. Elevated on pillow. Vanco continues History of Present Illness: 55 year old woman PMH discharged from [facility] yesterday (had been admitted with a GI bleed), who is presenting with swelling and erythema in the left antecubital fossa at the site of her previous iv with US revealing superficial venous thrombosis at the R cephalic vein - Current Medication List Current Medications: Active Medications Acetaminophen (Tylenol -) 650 mg PO Q4H PRN PRN Reason: PAIN LEVEL 6-10 Last Admin: 04/07/20 05:29 Dose: 650 mg Documented by: Acetaminophen/Butalbital/Caffeine (Fioricet -) 1 tablet PO Q6H PRN PRN Reason: HEADACHE Last Admin: 04/07/20 14:10 Dose: 1 tablet Documented by: Enoxaparin Sodium (Lovenox -) 40 mg SQ DAILY [facility] Last Admin: 04/07/20 10:35 Dose: Not Given Documented by: Vancomycin HCl (Vancomycin (Pre-Docked)) 1,000 mg in 250 mls @ 166.667 mls/hr IVPB Q12H [facility]; Protocol Last Admin: 04/07/20 05:27 Dose: 166.667 mls/hr Documented by: Pantoprazole Sodium (Protonix -) 40 mg PO BID [facility] Last Admin: 04/07/20 10:33 Dose: 40 mg Documented by: - Objective Vital Signs: Vital Signs Temperature 100.3 F H 04/07/20 14:00 Pulse Rate 129 H 04/07/20 14:00 Respiratory Rate 18 04/07/20 14:00 Blood Pressure 109/78 04/07/20 14:00 O2 Sat by Pulse Oximetry (%) 100 04/07/20 10:00 Additional Findings/Remarks: Constitutional: Yes: Well Nourished, No Distress, Calm Eyes: Yes: WNL, Conjunctiva Clear, EOM Intact HENT: Yes: WNL, Atraumatic, Normocephalic Neck: Yes: WNL, Supple, Trachea Midline Cardiovascular: Yes: WNL, Regular Rate and Rhythm Respiratory: Yes: WNL, Regular, CTA Bilaterally Gastrointestinal: Yes: WNL, Normal Bowel Sounds ...Rectal Exam: Yes: Deferred Renal/: Yes: WNL Breast(s): Yes: WNL Extremities: Yes: Other (swelling, erythema, tenderness overlying the left antecubital fossa; swelling continuing up arm; limited ROM) Edema: Yes Edema: LUE: 1+ Peripheral Pulses WNL: Yes Peripheral Pulses: Left Radial: 2+, Right Radial: 2+, Left Doralis Pedis: 2+, Right Dorsalis Pedis: 2+, Left Femoral: 2+, Right Femoral: 2+ Integumentary: Yes: Erythema (to left AC) Neurological: Yes: Other (head) ...Motor Strength: WNL Psychiatric: Yes: WNL Labs: CBC, BMP 04/07/20 06:50 04/07/20 06:50 Problem List - Problems (1) Prophylactic measure Assessment/Plan: FEN Fluids: adequate PO intake Electrolytes: monitor & replete as needed Nutrition: reg diet DVT moderate risk sq lovenox Dispo Maintain as inpatient full code discharge planning Code(s): Z29.9 - ENCOUNTER FOR PROPHYLACTIC MEASURES, UNSPECIFIED (2) Left arm cellulitis Assessment/Plan: c/w abx vanco elevate arm ID following Code(s): L03.114 - CELLULITIS OF LEFT UPPER LIMB (3) Superficial thrombophlebitis Assessment/Plan: Superficial thrombosis R cephalic vein with overlying cellulitis seen on US Vascular consulted --> warm compresses with no additional anticoagulation indicated at this time c/w DVT proph elevate arm over pillows ID following c/w Vancomycin; patient recently hospitalized and at risk for MRSA Code(s): I80.9 - PHLEBITIS AND THROMBOPHLEBITIS OF UNSPECIFIED SITE (4) Acute blood loss anemia Assessment/Plan: resolved Code(s): D62 - ACUTE POSTHEMORRHAGIC ANEMIA (5) COVID-19 ruled out Assessment/Plan: negative pcr Code(s): Z03.818 - ENCNTR FOR OBS FOR SUSP EXPSR TO OTH BIOLG AGENTS RULED OUT (6) Gastric ulcer Assessment/Plan: Recent admission for gastric ulcer, resolved Postbulbar duodenal ulcer bleed most likely due to NSAIDs Multiple gastric ulcers c/w PPI Code(s): K25.9 - GASTRIC ULCER, UNSP ACUTE OR CHRONIC, W/O HEMOR OR PERF (7) Hypothyroid Assessment/Plan: c/w synthroid Code(s): E03.9 - HYPOTHYROIDISM, UNSPECIFIED (8) Migraine Assessment/Plan: takes a triptan at home that is not on formulary sumatriptan po Code(s): G43.909 - MIGRAINE, UNSP, NOT INTRACTABLE, WITHOUT STATUS MIGRAINOSUS (9) Depression Assessment/Plan: emotional support Code(s): F32.9 - MAJOR DEPRESSIVE DISORDER, SINGLE EPISODE, UNSPECIFIED Visit type - Emergency Visit Emergency Visit: Yes ED Registration Date: 04/05/20 Care time: The patient presented to the Emergency Department on the above date and was hospitalized for further evaluation of their emergent condition. - New Patient This patient is new to me today: No - Critical Care Critical Care patient: No - Discharge Referral Referred to [facility] Med P.C.: No
--- NOTE | 2020-04-07 14:49 | PN ---
Progress Note, Physician History of Present Illness: NOT FEELING WELL TODAY C/O L UE PAIN T 100.3 BC (-) - Current Medication List Current Medications: Active Medications Acetaminophen (Tylenol -) 650 mg PO Q4H PRN PRN Reason: PAIN LEVEL 6-10 Last Admin: 04/07/20 05:29 Dose: 650 mg Documented by: Acetaminophen/Butalbital/Caffeine (Fioricet -) 1 tablet PO Q6H PRN PRN Reason: HEADACHE Last Admin: 04/07/20 14:10 Dose: 1 tablet Documented by: Enoxaparin Sodium (Lovenox -) 40 mg SQ DAILY [facility] Last Admin: 04/07/20 10:35 Dose: Not Given Documented by: Vancomycin HCl (Vancomycin (Pre-Docked)) 1,000 mg in 250 mls @ 166.667 mls/hr IVPB Q12H [facility]; Protocol Last Admin: 04/07/20 05:27 Dose: 166.667 mls/hr Documented by: Pantoprazole Sodium (Protonix -) 40 mg PO BID [facility] Last Admin: 04/07/20 10:33 Dose: 40 mg Documented by: - Objective Vital Signs: Vital Signs Temperature 100.3 F H 04/07/20 14:00 Pulse Rate 129 H 04/07/20 14:00 Respiratory Rate 18 04/07/20 14:00 Blood Pressure 109/78 04/07/20 14:00 O2 Sat by Pulse Oximetry (%) 100 04/07/20 10:00 Constitutional: Yes: No Distress Eyes: Yes: Conjunctiva Clear Cardiovascular: Yes: Regular Rate and Rhythm, S1, S2 Respiratory: Yes: CTA Bilaterally Gastrointestinal: Yes: Normal Bowel Sounds, Soft. No: Tenderness Extremities: Yes: Other (+ INDURATION, L ANTECUBITAL FOSSA + PALPABLE CORD L UE) Labs: CBC, BMP 04/07/20 06:50 04/07/20 06:50 Assessment/Plan CATHETER-RLATED PHLEBITIS/ CELLULITIS SUPERFICIAL THROMBOPHLEBITIS AWAIT C/S CONTINUE VANCO WARM COMPRESSES
--- NOTE | 2020-04-07 15:19 | CONS ---
INFECTIOUS DISEASE CONSULTATION DATE OF CONSULTATION: DATE OF DICTATION: 04/07/2020 HISTORY: A 55-year-old female who is evaluated for catheter-related phlebitis of the left upper extremity. Patient was recently admitted to the hospital from March 30 through April 03 with GI issues. She had an IV catheter present in the left upper extremity. Post hospital discharge she developed pain and swelling in the left antecubital fossa as well as a palpable cord and erythema extending on the upper part of the arm. She denied any associated fever or chills. She presented to the hospital where Doppler exam was performed and was negative for DVT. PAST MEDICAL HISTORY: Positive for peptic ulcer disease, hypothyroidism. ALLERGIES: To SULFA. MEDICATIONS: Vancomycin, Lovenox, Tylenol, Protonix. SOCIAL HISTORY: She resides in the community. Nonsmoker. Occasional EtOH. SYSTEMS REVIEW: Neurologic: No loss of consciousness, seizure activity, focal weakness. Cardiac: Negative chest pain or palpitations. Respiratory: Negative cough or sputum production. Gastrointestinal: Negative vomiting or diarrhea. Genitourinary: Negative for urinary tract infection. LABORATORY DATA: White blood cell count 9.8, hematocrit 25.6, platelet count 266. Creatinine 0.7. Urine analysis 22 white cells. COVID-19 PCR negative. Blood cultures preliminarily negative. Doppler exam: No evidence of DVT. Superficial venous thrombosis noted. PHYSICAL EXAMINATION: General: She is awake and alert in no acute distress. Vital Signs: Temperature 98.9, blood pressure 123/74, pulse 110 regular, respirations 18 per minute. HEENT: Sclerae are anicteric. Heart: Sounds S1, S2. Lungs: Clear. Abdomen: Soft and nontender. Extremities: Negative for edema. Examination of the left upper extremity there is induration present in the left antecubital fossa with slight erythema. There is no fluctuance or crepitus. There is a palpable cord extending from the antecubital fossa proximally to the upper arm. It is indurated, tender and slightly erythematous. There is no fluctuance or crepitus. IMPRESSION: 1. Catheter-related phlebitis/cellulitis. 2. Superficial thrombophlebitis. 3. Rule out sepsis secondary to skin source. I agree with vancomycin in light of recent hospitalization to cover skin pathogens including possible MRSA. Warm compresses. Vascular evaluation. Thank you for the kind referral. LUDY DUNCAN M.D. KEON/[id number]
[2020-04-07] MEDS ORDERED: ONDANSETRON 4 MG/2 ML VIAL IVPUSH ONE (17:57)
[2020-04-07] MEDS: SUMAtriptan SUCCINATE 50 MG TABLET PO SCH ×4 (20:50→23:19)
[2020-04-08 06:07] VITALS: BP 109/77; PULSE 106
[2020-04-08] MEDS: VANCOMYCIN 1 GRAM (PRE-DOCKED) 1,000 MG/250 ML BAG IVPB SCH (06:11)
[2020-04-08] MEDS: ACETAMINOPHEN 325 MG TABLET (FP) PO PRN (06:12)
[2020-04-08] MEDS: ACETAMINOPHEN/CAFFEINE/BUTALBITAL 1 TAB PO PRN (06:12)
[2020-04-08 06:52] LABS: BASO % 0.7 % (0-2.0); EOS % 3.3 % (0-4.5); HEMATOCRIT 28.5 % (32.4-45.2); HEMOGLOBIN 9.6 GM/dL (10.7-15.3); LYMPH % 19.7 % (8-40); MCH 31.3 pg (25.7-33.7); MCHC 33.8 g/dl (32.0-36.0); MEAN CELL VOLUME 92.7 fl (80-96); MEAN PLT VOLUME 8.4 fl (7.5-11.1); NEUT % 66.3 % (42.8-82.8); PLATELET COUNT 429 K/MM3 (134-434); RBC 3.07 M/mm3 (3.60-5.2); RDW 14.7 % (11.6-15.6); WHITE BLOOD COUNT 11.1 K/mm3 (4.0-10.0)
[2020-04-08 07:27] LABS: BILIRUBIN,TOTAL 0.4 mg/dL (0.2-1); BLOOD UREA NITROGEN 21.7 mg/dL (7-18); CALCIUM 9.3 mg/dL (8.5-10.1); CREATININE 0.8 mg/dL (0.55-1.3); MAGNESIUM 2.1 mg/dL (1.8-2.4); POTASSIUM 4.4 mmol/L (3.5-5.1); TOT PROT 7.2 g/dl (6.4-8.2)
[2020-04-08] MEDS: PANTOPRAZOLE 40 MG TABLET PO SCH (09:14)
[2020-04-08] MEDS: ENOXAPARIN NA (PORCINE) 40 MG/0.4 ML DISP.SYRIN SQ SCH (09:14)
[2020-04-08] MEDS ORDERED: ACETAMINOPHEN/CAFFEINE/BUTALBITAL 1 TAB PO PRN (10:37)
[2020-04-08] MEDS ORDERED: SUMAtriptan SUCCINATE 50 MG TABLET PO ONE (10:45)
--- NOTE | 2020-04-08 11:02 | DS ---
Physical Exam: SUBJECTIVE: Patient seen and examined OBJECTIVE: Vital Signs Period Temp Pulse Resp BP Sys/Garza Pulse Ox Last 24 Hr 97.5 F-100.3 F 106-129 18-18 109-133/67-78 98-100 PHYSICAL EXAM Constitutional: Yes: Well Nourished, No Distress, Calm Eyes: Yes: WNL, Conjunctiva Clear, EOM Intact HENT: Yes: WNL, Atraumatic, Normocephalic Neck: Yes: WNL, Supple, Trachea Midline Cardiovascular: Yes: WNL, Regular Rate and Rhythm Respiratory: Yes: WNL, Regular, CTA Bilaterally Gastrointestinal: Yes: WNL, Normal Bowel Sounds ...Rectal Exam: Yes: Deferred Renal/: Yes: WNL Breast(s): Yes: WNL Extremities: Yes: Other (swelling, erythema, tenderness overlying the left antecubital fossa; swelling continuing up arm; limited ROM) Edema: Yes Edema: LUE: 1+ Peripheral Pulses WNL: Yes Peripheral Pulses: Left Radial: 2+, Right Radial: 2+, Left Doralis Pedis: 2+, Right Dorsalis Pedis: 2+, Left Femoral: 2+, Right Femoral: 2+ Integumentary: Yes: Erythema (to left AC) Neurological: Yes: Other (head) ...Motor Strength: WNL Psychiatric: Yes: WNL LABS Laboratory Results - last 24 hr 04/08/20 04/08/20 04/08/20 06:09 06:09 06:09 WBC 11.1 H RBC 3.07 L 1212 Hgb 9.6 L Hct 28.5 L MCV 92.7 MCH 31.3 MCHC 33.8 RDW 14.7 Plt Count 429 D MPV 8.4 Absolute Neuts (auto) 7.3 Neutrophils % 66.3 Lymphocytes % 19.7 D Monocytes % 10.0 Eosinophils % 3.3 Basophils % 0.7 Nucleated RBC % 0 Sodium 136 Potassium 4.4 Chloride 101 Carbon Dioxide 21 Anion Gap 14 BUN 21.7 H Creatinine 0.8 Est GFR (CKD-EPI)AfAm 96.87 Est GFR (CKD-EPI)NonAf 83.58 Random Glucose 92 Calcium 9.3 Magnesium 2.1 Total Bilirubin 0.4 AST 13 L ALT 13 Alkaline Phosphatase 97 Total Protein 7.2 Albumin 3.0 L Vancomycin Pre-Dose 10.7 H HOSPITAL COURSE: Date of Admission:04/05/20 Date of Discharge: 04/08/20 Problem List - Problems (1) Prophylactic measure Assessment/Plan: FEN Fluids: adequate PO intake Electrolytes: monitor & replete as needed Nutrition: reg diet DVT moderate risk sq lovenox Dispo Maintain as inpatient full code discharge planning Code(s): Z29.9 - ENCOUNTER FOR PROPHYLACTIC MEASURES, UNSPECIFIED (2) Left arm cellulitis Assessment/Plan: c/w abx vanco elevate arm ID following Code(s): L03.114 - CELLULITIS OF LEFT UPPER LIMB (3) Superficial thrombophlebitis Assessment/Plan: Superficial thrombosis R cephalic vein with overlying cellulitis seen on US Vascular consulted --> warm compresses with no additional anticoagulation indicated at this time c/w DVT proph elevate arm over pillows ID following c/w Vancomycin; patient recently hospitalized and at risk for MRSA Code(s): I80.9 - PHLEBITIS AND THROMBOPHLEBITIS OF UNSPECIFIED SITE (4) Acute blood loss anemia Assessment/Plan: resolved Code(s): D62 - ACUTE POSTHEMORRHAGIC ANEMIA (5) COVID-19 ruled out Assessment/Plan: negative pcr Code(s): Z03.818 - ENCNTR FOR OBS FOR SUSP EXPSR TO OTH BIOLG AGENTS RULED OUT (6) Gastric ulcer Assessment/Plan: Recent admission for gastric ulcer, resolved Postbulbar duodenal ulcer bleed most likely due to NSAIDs Multiple gastric ulcers c/w PPI Code(s): K25.9 - GASTRIC ULCER, UNSP ACUTE OR CHRONIC, W/O HEMOR OR PERF (7) Hypothyroid Assessment/Plan: c/w synthroid Code(s): E03.9 - HYPOTHYROIDISM, UNSPECIFIED (8) Migraine Assessment/Plan: takes a triptan at home that is not on formulary sumatriptan po Code(s): G43.909 - MIGRAINE, UNSP, NOT INTRACTABLE, WITHOUT STATUS MIGRAINOSUS (9) Depression Assessment/Plan: emotional support Code(s): F32.9 - MAJOR DEPRESSIVE DISORDER, SINGLE EPISODE, UNSPECIFIED Visit type Minutes to complete discharge: 40 Discharge Summary Problems reviewed: Yes Reason For Visit: CELLULITIS OF LEFT UPPER EXTREMITY,SUPERFICIAL Current Active Problems Left arm cellulitis (Acute) Prophylactic measure (Acute) Superficial thrombophlebitis (Acute) Condition: Stable - Instructions - Home Medications Comprehensive Discharge Medication List: Ambulatory Orders Levothyroxine [Synthroid -] 88 mcg PO DAILY 05/25/12 Venlafaxine HCl [Effexor] 150 mg PO DAILY 03/31/20 Butalb/Acetaminophen/Caffeine [Fioricet 50-300-40 mg Capsule] 1 each PO Q6H #30 capsule 04/03/20 Mag Hydrox/Al Hydrox/Simeth [Mylanta Oral Suspension -] 30 ml PO Q6HPO cup 04/03/20 Pantoprazole Sodium [Protonix] 40 mg PO BID #60 tablet.dr 04/03/20 propRANOLol HCL [Inderal -] 20 mg PO BID tablet 04/03/20 Problem List - Problems (1) Prophylactic measure Code(s): Z29.9 - ENCOUNTER FOR PROPHYLACTIC MEASURES, UNSPECIFIED (2) Left arm cellulitis Code(s): L03.114 - CELLULITIS OF LEFT UPPER LIMB (3) Superficial thrombophlebitis Code(s): I80.9 - PHLEBITIS AND THROMBOPHLEBITIS OF UNSPECIFIED SITE (4) Acute blood loss anemia Code(s): D62 - ACUTE POSTHEMORRHAGIC ANEMIA (5) COVID-19 ruled out Code(s): Z03.818 - ENCNTR FOR OBS FOR SUSP EXPSR TO OT BIOLG AGENTS RULED OUT (6) Gastric ulcer Code(s): K25.9 - GASTRIC ULCER, UNSP ACUTE OR CHRONIC, W/O HEMOR OR PERF (7) Hypothyroid Code(s): E03.9 - HYPOTHYROIDISM, UNSPECIFIED (8) Migraine Code(s): G43.909 - MIGRAINE, UNSP, NOT INTRACTABLE, WITHOUT STATUS MIGRAINOSUS (9) Depression Code(s): F32.9 - MAJOR DEPRESSIVE DISORDER, SINGLE EPISODE, UNSPECIFIED - Discharge Referral Referred to [facility] Med P.C.: No
[2020-04-08] MEDS ORDERED: CLINDAMYCIN HCL 150 MG CAPSULE (FP) PO SCH (12:00)
[2020-04-08 12:57] VITALS: TEMP 98.4
--- NOTE | 2020-04-08 13:41 | PN ---
Progress Note, Physician History of Present Illness: FEELING WELL TODAY NO C/O L UE PAIN AFEBRILE BC (-) - Current Medication List Current Medications: Active Medications Acetaminophen (Tylenol -) 650 mg PO Q4H PRN PRN Reason: PAIN LEVEL 6-10 Last Admin: 04/08/20 06:12 Dose: 650 mg Documented by: Acetaminophen/Butalbital/Caffeine (Fioricet -) 1 tablet PO Q4H PRN PRN Reason: HEADACHE Clindamycin HCl (Cleocin -) 300 mg PO Q6HPO [facility] Stop: 04/15/20 11:59 Last Admin: 04/08/20 12:01 Dose: 300 mg Documented by: Lactobacillus Acidophilus (Bacid -) 1 tab PO DAILY [facility] Stop: 04/15/20 10:01 Pantoprazole Sodium (Protonix -) 40 mg PO BID [facility] Last Admin: 04/08/20 09:14 Dose: 40 mg Documented by: - Objective Vital Signs: Vital Signs Temperature 98.4 F 04/08/20 10:00 Pulse Rate 106 H 04/08/20 06:00 Respiratory Rate 18 04/08/20 09:00 Blood Pressure 109/77 04/08/20 06:00 O2 Sat by Pulse Oximetry (%) 100 04/08/20 10:00 Constitutional: Yes: No Distress Eyes: Yes: Conjunctiva Clear Cardiovascular: Yes: Regular Rate and Rhythm, S1, S2 Respiratory: Yes: CTA Bilaterally Gastrointestinal: Yes: Normal Bowel Sounds, Soft, Tenderness Extremities: Yes: Other (L ANTECUBITAL FOSSA INDURATUION/ TENDERNESS IMPROVED. NO ERYTHEMA. PHLEBITIS RESOLVING NO ERYTHEMA) Labs: CBC, BMP 04/08/20 06:09 04/08/20 06:09 Assessment/Plan CATHETER-RELATED PHLEBITIS/ CELLULITIS SUPERFICIAL THROMBOPHLEBITIS IMPROVED SUBSTITUTE PO CLINDAMYCIN X7D WITH PROBIOTIC WARM COMPRESSES
[2020-04-09] MEDS ORDERED: LACTOBACILLUS ACIDOPHILUS 1 TABLET PO SCH (10:00)
== END 2020-04-08 14:14 | disposition home or self-care (01) | DRG 300 ==
LOC: JER 19:36 → JERBED 04-05 00:05 → J7W 04-05 19:05
PROVIDERS: ADMIT Internal Medicine; ATTEND Nurse Practitioner Acute Care
DX: I80.9 Phlebitis and thrombophlebitis of unspecified site (principal); L03.114 Cellulitis of left upper limb; E46 Unspecified protein-calorie malnutrition; D62 Acute posthemorrhagic anemia; E03.9 Hypothyroidism, unspecified; F32.9 Major depressive disorder, single episode, unspecified; G43.909 Migraine, unspecified, not intractable, without status migrainosus; D64.9 Anemia, unspecified; Z68.20 Body mass index [BMI] 20.0-20.9, adult; E88.09 Other disorders of plasma-protein metabolism, not elsewhere classified; I80.8 Phlebitis and thrombophlebitis of other sites; D72.829 Elevated white blood cell count, unspecified; K25.9 Gastric ulcer, unspecified as acute or chronic, without hemorrhage or perforation
CPT/HCPCS: 36415; 80053; 81003; 82728; 83540; 83550; 83605; 83735; 84100; 84443; 84484; 85025; 87040; 90732; 93005; 93010; 93971; 99285-25; C9803; G0009; G0480; Q2036; U0003

== ENCOUNTER 2022-12-04 19:49 | Emergency (ER) | payer BC ==
[2022-12-04 19:57] VITALS: BP 140/91; PULSE 96; RESP 16; TEMP 99; BMI 20.8
[2022-12-04 20:38] LABS: EPITHELIAL CELLS FEW /hpf
[2022-12-04] MEDS ORDERED: CEPHALEXIN MONOHYDRATE 500 MG CAPSULE (UD) PO ONE (21:18)
[2022-12-04] MEDS ORDERED: CEPHALEXIN MONOHYDRATE 500 MG CAPSULE (UD) ONE (21:20)
== END 2022-12-04 21:49 | disposition home or self-care (01) ==
LOC: FER 19:49
DX: R35.0 Frequency of micturition (principal); R39.15 Urgency of urination; R10.2 Pelvic and perineal pain; N39.0 Urinary tract infection, site not specified
CPT/HCPCS: 81003; 81015; 87086; 99283-25